=== PATIENT | female | born 1945 | race Caucasian/White ===

== ENCOUNTER 2020-12-01 22:28 | Inpatient (IN) | payer MEDICARE, OTHER, SELFPAY ==
[~2020-12-01] VITALS: Ht 154.9 cm; Wt 37.3 kg
[2020-12-02] MEDS ORDERED: METO1TAB87 PO (00:16)
[2020-12-02] MEDS ORDERED: BUSP10TA PO (00:16)
[2020-12-02] MEDS ORDERED: LISI20TA33 PO (00:16)
[2020-12-02] MEDS ORDERED: IPRA0.00 NEB (00:16)
[2020-12-02] MEDS ORDERED: LEVO750T13 (00:16)
[2020-12-02 01:20] LABS: HEMATOCRIT 38.5 % (36.0-47.0); HEMOGLOBIN 12.8 g/dl (12.0-15.5); MEAN CORPUSCULAR HEMOGLOBIN 31.5 pg (27.0-33.0); MEAN CORPUSCULAR HGB CONC 33.2 g/dl (32.0-36.5); MEAN CORPUSCULAR VOLUME 94.8 fl (80.0-96.0); PLATELET COUNT, AUTOMATED 196 10^3/uL (150-450); RED BLOOD COUNT 4.06 10^6/uL (4.00-5.40); WHITE BLOOD COUNT 19.4 10^3/uL (4.0-10.0)
--- NOTE | 2020-12-02 02:12 | REPVR ---
PROCEDURE INFORMATION: Exam: CT Head Without Contrast Exam date and time: 12/02/2020 1:16 AM Age: 75 years old Clinical indication: Injury or trauma; Fall; Blunt trauma (contusions or hematomas) TECHNIQUE: Imaging protocol: Computed tomography of the head without contrast. Axial and coronal reformatted images were created and reviewed. Radiation optimization: All CT scans at this facility use at least one of these dose optimization techniques: automated exposure control; mA and/or kV adjustment per patient size (includes targeted exams where dose is matched to clinical indication); or iterative reconstruction. COMPARISON: No relevant prior studies available. FINDINGS: Brain: Right posterior parieto-occipital encephalomalacia. Patchy areas of hypoattenuation in the periventricular and subcortical white matter, consistent with chronic small vessel ischemic disease. No CT evidence of acute intracranial hemorrhage or acute territorial infarction. No significant mass effect or midline shift. Basal cisterns patent. Cerebral ventricles: Prominence of the cortical sulci, cisterns and ventricular system, consistent with cerebral and cerebellar volume loss. Paranasal sinuses: Minimal ethmoid mucosal thickening. No fluid levels. Mastoid air cells: Grossly unremarkable. Vasculature: Calcific atherosclerotic disease in the cavernous internal carotid arteries, as well as the vertebro-basilar system. Bones/joints: No acute osseous abnormality. Soft tissues: Grossly unremarkable. IMPRESSION: 1. No CT evidence of acute intracranial pathology. 2. Additional findings, as above. Electronically signed by: Jose Ramirez On 12/02/2020 02:11:50 AM
--- NOTE | 2020-12-02 02:17 | REPVR ---
PROCEDURE INFORMATION: Exam: CT Cervical Spine Without Contrast Exam date and time: 12/02/2020 1:16 AM Age: 75 years old Clinical indication: Injury or trauma; Fall; Blunt trauma TECHNIQUE: Imaging protocol: Computed tomography images of the cervical spine without contrast. Axial, coronal and sagittal reformatted images were created and reviewed. Radiation optimization: All CT scans at this facility use at least one of these dose optimization techniques: automated exposure control; mA and/or kV adjustment per patient size (includes targeted exams where dose is matched to clinical indication); or iterative reconstruction. COMPARISON: No relevant prior studies available. FINDINGS: Bones/joints: Osteopenia. Normal cervical lordosis. No CT evidence of acute fracture, dislocation or subluxation. Mild anterolisthesis of C5 on C6, C6 on C7 and C7 on T1. Alignment otherwise anatomic. Chronic appearing partial T3 superior endplate compression deformity. Remainder of the vertebral body heights maintained. Discs/Spinal canal/Neural foramina: Mild multilevel spondylosis. No significant spinal canal or neural foraminal stenosis. Lungs: Grossly unremarkable. Soft tissues: Grossly unremarkable. IMPRESSION: 1. No CT evidence of acute cervical spine traumatic injury. 2. Additional findings, as above. Electronically signed by: Jose Ramirez On 12/02/2020 02:16:58 AM
[2020-12-02 03:25] LABS: BLOOD UREA NITROGEN 14 MG/DL (7-18); CALCIUM LEVEL 8.7 MG/DL (8.8-10.2); CARBON DIOXIDE LEVEL 37 MEQ/L (21-32); CHLORIDE LEVEL 87 MEQ/L (98-107); CK-MB VALUE MASS 1.1 NG/ML (<3.6); CPK CREATINE PHOSPHOKINASE 68 U/L (26-192); CREATININE FOR GFR 0.41 MG/DL (0.55-1.30); GLOMERULAR FILTRATION RATE > 60.0 (>39); GLUCOSE, FASTING 120 MG/DL (70-100); MAGNESIUM LEVEL 1.8 MG/DL (1.8-2.4); MB/CK RELATIVE INDEX 1.62 (< OR =4); POTASSIUM SERUM 3.9 MEQ/L (3.5-5.1); SODIUM LEVEL 130 MEQ/L (136-145); TROPONIN I 0.29 NG/ML (< 0.10)
--- NOTE | 2020-12-02 04:15 | REPVR ---
PROCEDURE INFORMATION: Exam: CT Pelvis Without Contrast; Skeletal Exam date and time: 12/02/2020 2:10 AM Age: 75 years old Clinical indication: Injury or trauma; Fall; Blunt trauma (contusions or hematomas); Bilateral; Hip; Additional info: Please include bilateral hips TECHNIQUE: Imaging protocol: Computed tomography images of the pelvis without contrast. Exam focused on the skeletal structures. Radiation optimization: All CT scans at this facility use at least one of these dose optimization techniques: automated exposure control; mA and/or kV adjustment per patient size (includes targeted exams where dose is matched to clinical indication); or iterative reconstruction. COMPARISON: No relevant prior studies available. Study limitations: Evaluation for mass, inflammatory change, including bowel wall/fold thickening, viscera, and vasculature, is significantly compromised in this patient without any contrast. 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 Severe appearing calcified atherosclerotic disease is noted. Vascular patency or hemodynamics significance is not evaluated by this study. PERITONEAL : The entire peritoneal cavity is not included. No free air or free fluid within the visualized peritoneal cavity. GI: The entire GI tract is not included. The visualized stomach does not appear volumetrically distended, however does extend into the pelvis. The stomach contains some fluid and gas. Gastric wall or fold thickening cannot be excluded by this study. Clinical correlation is advised. No appearance of a small-bowel obstruction. Evaluation for bowel wall and fold thickening is compromised on this study, secondary to lack of any contrast. Perianal thickening or inflammation cannot be excluded by this study. Portions of the colon and rectum appear thick walled. Clinical correlation with any symptoms. This could be artifactual. For complete evaluation, consider follow-up with colonoscopy or fluoroscopic evaluation. The appendix is not identified. HEPATOBILIARY, PANCREAS, SPLEEN: The entire liver is not included. The visualized right hepatic lobe extends into the pelvis, possibly a Jeanette's lobe. Hepatic attenuation is within normal range. Evaluation is limited due to lack of contrast, however there appears to be some calcific material in the region of the gallbladder neck. If there are symptoms related to the gallbladder, consider ultrasound for further evaluation. The entire pancreas is not included. No visualized pancreatic inflammation. The entire spleen is not included. The visualized spleen does not appear enlarged. BLADDER, RETROPERITONEAL: Mildly distended urinary bladder. No perivesical stranding. Retroperitoneal structures are not well due to lack of contrast. PELVIC: Evaluation of pelvic structures and adnexa is compromised secondary to lack of contrast differentiation. No obvious dominant cystic pelvic mass is seen. MUSCULOSKELETAL: There is heterogeneous severe vertebral compression fracture deformity of the L4 vertebral body of indeterminate acuity. There is slight retropulsion into the spinal canal which may result in moderate spinal stenosis. Chronic appearing partial avulsion of the right greater trochanter noted with nonunion. Mild degenerative changes of the hip joints are seen. No acute hip fracture seen. Degenerative changes of the pubic symphysis are noted. No acute sacral fracture is seen. Mild body wall edema noted. IMPRESSION: Severe L4 vertebral body compression fracture deformity with retropulsion, of indeterminate acuity. No other evidence of an acute pelvic injury is seen. 4.2 cm abdominoaortic aneurysm. Severe appearing atherosclerotic disease. Nonspecific gastrointestinal findings as discussed above. There may be a gallstone in the region of the gallbladder neck. If there are related symptoms, consider ultrasound for further evaluation. Other findings and limitations discussed above. Electronically signed by: Andres Cassidy On 12/02/2020 04:15:28 AM
[2020-12-02] MEDS ORDERED: NS 1,000 ML IV STA (05:08)
[2020-12-02] MEDS ORDERED: BOOSTRIX/ADACEL VACCINE (DIPHTH/PERTUSS/ACELL/TETANUS) 0.5ML SYR IM ONE (05:10)
[2020-12-02] MEDS ORDERED: ACETAMINOPHEN TAB 650MG DOSE (2X325MG) PO ONE (05:10)
[2020-12-02] MEDS ORDERED: cefTRIAXone SOD 1 GM in D5W MINI-BAG PLUS 50 ML IV ONE (05:30)
[2020-12-02] MEDS ORDERED: ASPIRIN 325 MG TAB PO ONE (05:30)
[2020-12-02] MEDS ORDERED: med rec comment (06:43)
[2020-12-02 07:08] LABS: RSV AMPLIFICATION NEGATIVE (NEGATIVE)
--- NOTE | 2020-12-02 08:21 | REPVR ---
PROCEDURE INFORMATION: Exam: XR Chest Exam date and time: 12/02/2020 6:43 AM Age: 75 years old Clinical indication: Other: Leukocystosis TECHNIQUE: Imaging protocol: XR of the chest. Views: 1 view. COMPARISON: CT Spine,cervical w/o contrast 12/02/2020 1:15 AM FINDINGS: Lungs: The lungs are hyperinflated. There is right lower lung zone infiltrates. There is possibly subtle left upper lobe infiltrates. Pleural spaces: Unremarkable. No pleural effusion. No pneumothorax. Heart/Mediastinum: Unremarkable. No cardiomegaly. Vasculature: There is moderate aortic knob calcifications. Bones/joints: Unremarkable. IMPRESSION: Hyperinflated lungs with right lower lung zone infiltrates with an element of atelectasis and volume loss as suggested by mediastinal shift to the right. Additionally noted is questionable subtle left upper lobe infiltrates. These are possibly on the basis of infectious etiology however follow-up to resolution or correlation with CT of the chest are suggested. Electronically signed by: Hilario Alfonso On 12/02/2020 08:21:01 AM
[2020-12-02] MEDS ORDERED: MOM 30ML SUSPENSION UDC PO PRN (08:55)
[2020-12-02] MEDS ORDERED: ACETAMINOPHEN TAB 650MG DOSE (2X325MG) PO PRN (08:55)
[2020-12-02] MEDS ORDERED: IPRATROPIUM 0.5MG/ALBUTEROL 2.5MG INH SOL UD 3ML (DUONEB) NEB PRN (09:05)
--- NOTE | 2020-12-02 10:23 | REP ---
INDICATION: R LL Infiltrate? COMPARISON: None. TECHNIQUE: Limited noncontrast enhanced standard helical technique FINDINGS: There is no mediastinal adenopathy. Right hilar adenopathy cannot be ruled out since intravenous contrast was not administered. There are no pleural or pericardial effusions. The imaged upper abdomen shows a 3.6 cm sized abdominal aortic aneurysm with heavy peripheral wall calcification. Bone window technique throughout the examination shows an age undetermined L1 grade 3 compression fracture and a grade 1 T6 age undetermined compression fracture and a grade 2 T4 age undetermined compression fracture and a T2 grade 2 age undetermined compression deformity. The bones are demineralized. Evaluation of the lung castillo shows a patchy area of consolidation in the right lower lobe seen in conjunction with bronchiectasis and debris within multiple dilated bronchials there is an asymmetric density in the left upper lobe which measures 2.1 cm. This has irregular margins. There is an irregular density in the inferior right middle lobe. This is pleural based and seen with some air bronchograms. The lung castillo are hyperexpanded. Fibrotic changes are seen throughout the lung castillo. IMPRESSION: 1. Right lower lobe findings as described above suspicious for infectious etiology, however, neoplasm cannot be ruled out. 2. Abnormal left upper lobe density as described above. Neoplasm cannot be ruled out. 3. Pleural based right middle lobe density as described above probable subsegmental atelectatic change and/or fibrotic change. This would need additional follow-up. 4. Other lung field findings as described above. 5. Vertebral body findings as described above. 6. Other findings and limitations as described above. <Electronically signed by Jarad Nunez > 12/02/20 [id number]
[2020-12-02 10:35] VITALS: BP 178/89
[2020-12-02] MEDS: METOPROLOL TART 25 MG TABLET PO SCH ×2 (11:14→21:56)
[2020-12-02] MEDS: DOCUSATE SODIUM 100MG CAPSULE PO SCH ×2 (11:14→21:56)
[2020-12-02] MEDS: PIPERACILLIN/TAZOBACTAM SOD 3.375 GM in D5W MINI-BAG PLUS 50 ML IV SCH ×3 (11:15→22:01)
[2020-12-02 12:00] VITALS: BP 167/77
--- NOTE | 2020-12-02 12:54 | HPEPDOC ---
[facility] Medical History & Physical Date of Admission Dec 02, 2020 Date of Service: Dec 02, 2020 History and Physical Chief complaint: Who presented to the hospital after she had fallen History of present illness: Patient is a 79-year-old female who presented to the hospital after she had fallen 2 days prior. Patient reported that on Thursday night she was getting ready for bed. . She reported that she stumbled and had fallen. She reported that she hit her head and left arm landing on her left hip. Patient denied any loss of consciousness. She reportedly got up and went back to bed. Patients family was trying to get in touch with her and she failed to answer any of her phone calls. Patient is having difficulty with ambulation and family had decided to bring her to the emergency room for further evaluation. Currently patient denies any chest pain. She does report some shortness of breath and a productive cough with clear sputum over the last 1 month. She does report a dry throat. Reports some nausea and 2 days ago experience some vomiting early denies any abdominal pain. Does report diarrhea with her last bowel movement occurring yesterday described as loose and not watery. Denies any urinary discomfort. Has not experienced any recent fevers or chills. Reports her appetite is normal, but has expressed some weight loss that she is unable to quantify. Past Medical History: CAD s/p stent HTN COPD Chronic hypoxia (on 4L of oxygen via NC at home) Depression Past Surgical History: Hysterectomy Allergies: See below Medications: See below Family History: - No history of malignancies Social History: - Denies the use of alcohol or illicit drugs; patient reports that she is an ac tive smoker of greater than 50 years at one pack per day - Denies recent travel or sick contacts - Lives alone - Occupation; previously worked in a [employer] Review of Systems: 10 point review of systems complete, all negative otherwise stated in HPI Physical exam: - Vitals: BP [179/79], HR [87], RR [17], Sat [94%NC2L], Temp [98.2F] - General: Sitting up in bed, Frail, No acute distress, Speaking in full sentences, AAOx3 - HEENT: NC, AT, PERRLA - CVS: RRR, +S1S2 - Lungs: Fair air entry bilaterally, No appreciable wheezing / rales / rhonchi - Abdomen: Soft, Non-distended, Non-tender - Extremities: No lower extremity edema, No calf tenderness - Neuro: No focal motor or sensory deficit - Skin: No visible rashes Labs: See below Imaging: See below EKG: See below Assessment and Plan: Fall - Patient reported that she had fallen when she was getting ready for bed - Has had difficulty with ambulation - Imaging noted above without any acute fractures as reported by ER provider - c/w Pain control with Tylenol / Tramadol - Will start PT and OT / Fall precautions Suspected pneumonia - Patient has reported some shortness of breath with a productive cough - Patient remains afebrile and hemodynamically stable - Leukocytosis - No lactic acidosis - Imaging noted above - Will check blood cultures / sputum cultures / Procalcitonin / MRSA screen - Will start Zosyn (Day #1) CAD s/p stent - Patient reports that this has happened greater than 12 years ago - Denies any chest pain, shortness of breath or palpitations - Troponin elevation; has remained stable; likely 2/2 demand ischemia - Currently not on any aspirin or statins - s/p ASA 325 in the ER Hyponatremia - Will check urine sodium / creatinine / osmolality / UA - s/p 1 L NS in the ER HTN - BP elevated; however, has not taken any of her medications - Will start Lisinopril / Metoprolol withhold parameters Chronic COPD - No evidence of exacerbation - Continue with inhaled therapy as ordered Chronic hypoxia - Patient is on 4L of oxygen via NC at home Depression - c/w Buspirone DVT prophylaxis - Will start Heparin Vital Signs Vital Signs Date Time Temp Pulse Resp B/P (MAP) Pulse Ox O2 Delivery O2 Flow Rate FiO2 12/02/20 11:14 87 179/79 12/02/20 10:35 98.2 17 94 Nasal Cannula 2.0 Laboratory Data Labs 24H Laboratory Tests 2 12/02/20 01:15: Nucleated Red Blood Cells % (auto) 0.0 12/02/20 02:08: Anion Gap 6L, Glomerular Filtration Rate > 60.0, Calcium Level 8.7L, Magnesium Level 1.8, Total Creatine Kinase 68, Creatine Kinase MB 1.1, Creatine Kinase MB Relative Index 1.62, Troponin I 0.29H 12/02/20 05:27: Troponin I 0.29H 12/02/20 06:18: Coronavirus (COVID-19)(PCR) NEGATIVE, Influenza Type A (RT-PCR) NEGATIVE, Influenza Type B (RT-PCR) NEGATIVE, Respiratory Syncytial Virus (PCR) NEGATIVE 12/02/20 09:35: Lactic Acid Level 1.7, Procalcitonin 0.23 12/02/20 11:55: 12/02/20 11:56: 12/02/20 12:07: 12/02/20 12:16: CBC/BMP Laboratory Tests 12/02/20 01:15 12/02/20 02:08 Microbiology Microbiology 12/02/20 Blood Culture, Received Pending 12/02/20 Blood Culture, Received Pending Home Medications Scheduled Buspirone HCl (Buspirone HCl) 10 Mg Tablet, 10 MG PO BID Lisinopril (Lisinopril) 20 Mg Tablet, 20 MG PO DAILY Metoprolol Tartrate (Metoprolol Tartrate) 25 Mg Tablet, 25 MG PO BID Scheduled PRN Ipratropium/Albuterol Sulfate (Iprat-Albut 0.5-3(2.5) mg/3 ml) 3 Ml Ampul.neb, 1 VIAL NEB QID PRN for SHORTNESS OF BREATH Miscellaneous Medications [med rec comment] used external med history for med rec unable to verify with pt. or family Allergies Coded Allergies: No Known Allergies (Unverified , 12/01/20) COLLINS CLARK MD Dec 02, 2020 12:54
[2020-12-02 13:00] LABS: CK-MB VALUE MASS < 1.0 NG/ML (<3.6); CPK CREATINE PHOSPHOKINASE 41 U/L (26-192); MB/CK RELATIVE INDEX 2.44 (< OR =4); TROPONIN I 0.26 NG/ML (< 0.10)
[2020-12-02] MEDS: HEPARIN SOD (PORCINE) 5000UNITS/ML 1ML VIAL/SYRINGE SC SCH ×2 (13:21→21:56)
[2020-12-02] MEDS: busPIRone 10 MG TAB PO SCH ×2 (13:21→21:55)
[2020-12-02 13:23] LABS: CREATININE,RANDOM URINE 79.6 MG/DL; POTASSIUM RANDOM URINE 28.6 MEQ/L
[2020-12-02 13:43] LABS: FREE T4 1.16 NG/DL (0.76-1.46); THYROID STIMULATING HORMONE 1.15 uIU/ML (0.358-3.740)
--- NOTE | 2020-12-02 14:31 | ECGEPIP ---
[facility] - ED Test Date: 2020-12-02 Pat Name: AC BAGLEY Department: Room: - Gender: Female Mill Tender: : 1945 Requested By: SAJAN DIANE Order Number: [id number] Reading MD: Katya Patel Measurements Intervals Elmer Rate: 87 P: 67 SD: 132 QRS: 47 QRSD: 126 T: -54 QT: 392 QTc: 471 Interpretive Statements Sinus rhythm with occasional premature ventricular complexes Right atrial enlargement Left ventricular hypertrophy with QRS widening ( Sokolow-Borjas , [place] product ) Nonspecific T wave abnormality No prior Electronically Signed on 12-02-2020 14:30:46 EDT by Katya Patel
[2020-12-02 16:00] VITALS: BP 157/70
[2020-12-02 20:00] VITALS: BP 128/60
[2020-12-03] VITALS: BP 134/66
[2020-12-03 04:00] VITALS: BP 153/81
[2020-12-03] MEDS: PIPERACILLIN/TAZOBACTAM SOD 3.375 GM in D5W MINI-BAG PLUS 50 ML IV SCH ×3 (05:28→16:43)
[2020-12-03] MEDS: HEPARIN SOD (PORCINE) 5000UNITS/ML 1ML VIAL/SYRINGE SC SCH ×2 (05:29→12:58)
[2020-12-03 05:54] LABS: BASO # 0.1 10^3/uL (0.0-0.2); BASO % 0.9 % (0.0-1.0); EOS # 0.1 10^3/uL (0.0-0.5); EOS % 0.5 % (0.0-3.0); HEMATOCRIT 34.2 % (36.0-47.0); HEMOGLOBIN 11.1 g/dl (12.0-15.5); LYMPH # 0.4 10^3/uL (1.5-5.0); LYMPH % 3.2 % (24.0-44.0); MEAN CORPUSCULAR HEMOGLOBIN 31.4 pg (27.0-33.0); MEAN CORPUSCULAR HGB CONC 32.5 g/dl (32.0-36.5); MEAN CORPUSCULAR VOLUME 96.9 fl (80.0-96.0); MONO # 0.9 10^3/uL (0.0-0.8); MONO % 6.7 % (2.0-8.0); NEUTROPHILS # 11.2 10^3/uL (1.5-8.5); NEUTROPHILS % 88.1 % (36.0-66.0); PLATELET COUNT, AUTOMATED 180 10^3/uL (150-450); RED BLOOD COUNT 3.53 10^6/uL (4.00-5.40); WHITE BLOOD COUNT 12.7 10^3/uL (4.0-10.0)
[2020-12-03 06:19] LABS: BLOOD UREA NITROGEN 14 MG/DL (7-18); CALCIUM LEVEL 8.2 MG/DL (8.8-10.2); CARBON DIOXIDE LEVEL 41 MEQ/L (21-32); CHLORIDE LEVEL 88 MEQ/L (98-107); CREATININE FOR GFR 0.44 MG/DL (0.55-1.30); GLOMERULAR FILTRATION RATE > 60.0 (>39); GLUCOSE, FASTING 78 MG/DL (70-100); MAGNESIUM LEVEL 1.8 MG/DL (1.8-2.4); POTASSIUM SERUM 3.2 MEQ/L (3.5-5.1); SODIUM LEVEL 131 MEQ/L (136-145)
[2020-12-03 07:32] LABS: C REACTIVE PROTEIN QUANTITATIV 5.46 MG/DL (0.00-0.30)
[2020-12-03 08:00] VITALS: BP 165/78
[2020-12-03] MEDS ORDERED: POTASSIUM CHLORIDE 10 MEQ SR TABLET PO ONE (08:00)
[2020-12-03 08:47] LABS: ERYTHROCYTE SEDIMENTATION RATE 20 mm/hr (0-30)
[2020-12-03] MEDS ORDERED: guaiFENesin ER 600 MG TAB PO SCH (09:00)
[2020-12-03 09:02] VITALS: BP 165/78
[2020-12-03] MEDS: busPIRone 10 MG TAB PO SCH (09:02)
[2020-12-03] MEDS: DOCUSATE SODIUM 100MG CAPSULE PO SCH (09:02)
[2020-12-03] MEDS: METOPROLOL TART 25 MG TABLET PO SCH (09:02)
[2020-12-03 12:00] VITALS: BP 151/75
--- NOTE | 2020-12-03 12:43 | DS.PDOC ---
Discharge Summary General Date of Admission Dec 02, 2020 at 08:53 Date of Discharge 12/03/2020 Discharge Summary PROCEDURES PERFORMED DURING STAY: [None]. ADMITTING DIAGNOSES / DISCHARGE DIAGNOSES: Fall / L4 fracture (unclear acuity) Suspected pneumonia / Positive blood cultures CAD s/p stent Hyponatremia Hypokalemia HTN Chronic COPD Chronic hypoxia Depression DVT prophylaxis COMPLICATIONS/CHIEF COMPLAINT: Fall HISTORY OF PRESENT ILLNESS: Patient is a 79-year-old female who presented to the hospital after she had fallen 2 days prior. Patient reported that on Thursday night she was g etting ready for bed. . She reported that she stumbled and had fallen. She reported that she hit her head and left arm landing on her left hip. Patient denied any loss of consciousness. She reportedly got up and went back to bed. Patient's family had transient to the emergency room for further evaluation. Patient was admitted to hospital service for weakness and suspected pneumonia. Patient was seen and examined at the bedside. Currently patient reports that her breathing is doing relatively better. She denies any nausea, vomiting, abdominal pain or diarrhea. Reports that she is still coughing but unable to expectorate much sputum. Denies any chest pain. Patient is reported a significant pain of her back. HOSPITAL COURSE: Fall / L4 fracture (unclear acuity) - Patient reported that she had fallen when she was getting ready for bed - Has had difficulty with ambulation - Physical reveals 5 out of 5 strength of bilateral lower extremities and no sensory deficits - This morning patient has reported incontinence of stool and urine - c/w Pain control with Tylenol - Will continue with bed rest - c/w PT and OT after TLSO brace / Fall precautions - Discussed with 3 sons Jaime Alexandra and Dagoberto - advising the neurosurgical evaluation would be prudent - Patient has been accepted to [facility] for evaluation by neurosurgery under Dr. Shoemaker's service - Patient will be transferred there via ambulance Suspected pneumonia / Positive blood cultures - Patient has reported some shortness of breath with a productive cough - Patient remains afebrile and hemodynamically stable - Leukocytosis - No lactic acidosis - Blood cultures 12/02: Positive for gram positive cocci in clusters - Sputum cultures pending - PCT not significantly elevated - MRSA negative - Imaging noted above - Will repeat blood cultures - c/w Lisa (Day #2) - Had consulted ID CAD s/p stent - Patient reports that this has happened greater than 12 years ago - Denies any chest pain, shortness of breath or palpitations - Troponins have remained stable; likely 2/2 demand ischemia - Currently not on any aspirin or statins - s/p ASA 325 in the ER Hyponatremia - Will check urine sodium / creatinine / osmolality / UA - s/p 1 L NS in the ER Hypokalemia - Will supplement HTN - BP elevated; however, has not taken any of her medications - c/w Lisinopril / Metoprolol withhold parameters Chronic COPD - No evidence of exacerbation - c/w inhaled therapy as ordered Chronic hypoxia - Patient is on 4L of oxygen via NC at home Depression - c/w Buspirone DVT prophylaxis - c/w Heparin DISCHARGE MEDICATIONS: Please see below. ALLERGIES: Please see below. PHYSICAL EXAMINATION ON DISCHARGE: Vitals (See below) General: Lying in bed, no acute distress, comfortable, AAOx3 HEENT: NC, AT CVS: +S1S2 Lungs: Fair air entry b/l, no evidence of wheezing, rales or rhonchi Abdomen: Soft, nondistended and nontender Extremities: Lower extremities do not reveal any significant pitting edema Neuro: 5 out of 5 strength at lower extremities bilaterally. No sensory deficits noted LABORATORY DATA: Please see below. IMAGING: CT cervical spine 12/02: 1. No CT evidence of acute cervical spine traumatic injury. 2. Additional findings, as above. CT head 12/02: 1. No CT evidence of acute intracranial pathology. 2. Additional findings, as above. CT pelvis 12/02: Severe L4 vertebral body compression fracture deformity with retropulsion, of indeterminate acuity. No other evidence of an acute pelvic injury is seen. CXR 12/02: Hyperinflated lungs with right lower lung zone infiltrates with an element of atelectasis and volume loss as suggested by mediastinal shift to the right. Additionally noted is questionable subtle left upper lobe infiltrates. These are possibly on the basis of infectious etiology however follow-up to resolution or correlation with CT of the chest are suggested. CT Chest 12/02: 1. Right lower lobe findings as described above suspicious for infectious etiology, however, neoplasm cannot be ruled out. 2. Abnormal left upper lobe density as described above. Neoplasm cannot be ruled out. 3. Pleural based right middle lobe density as described above probable subsegmental atelectatic change and/or fibrotic change. This would need additional follow-up. 4. Other lung field findings as described above. 5. Vertebral body findings as described above. 6. Other findings and limitations as described above. ACTIVITY: Bedrest DISCHARGE PLAN: Follow-up with Neurosurgery in [facility] upon transfer Remain compliant with treatment plan and medications Return to the ER if you experience any problems DISPOSITION: Transferred to [facility] DISCHARGE CONDITION: [Stable]. TIME SPENT ON DISCHARGE: 35 minutes. Vital Signs/I&Os Vital Signs Date Time Temp Pulse Resp B/P (MAP) Pulse Ox O2 Delivery O2 Flow Rate FiO2 12/03/20 12:00 98.7 63 18 151/75 (100) 97 Nasal Cannula 4.0 I&O- Last 24 Hours up to 6 AM 12/03/20 05:59 Intake Total 1370 ml Output Total 500 ml Balance 870 ml Laboratory Data Labs 24H Laboratory Tests 2 12/02/20 12:55: Osmolality 282, Thyroid Stimulating Hormone (TSH) 1.150, Free Thyroxine 1.16 12/03/20 05:23: Immature Granulocyte % (Auto) 0.6, Neutrophils (%) (Auto) 88.1H, Lymphocytes (%) (Auto) 3.2L, Monocytes (%) (Auto) 6.7, Eosinophils (%) (Auto) 0.5, Basophils (%) (Auto) 0.9, Neutrophils # (Auto) 11.2H, Lymphocytes # (Auto) 0.4L, Monocytes # (Auto) 0.9H, Eosinophils # (Auto) 0.1, Basophils # (Auto) 0.1, Nucleated Red Blood Cells % (auto) 0.0, Erythrocyte Sedimentation Rate 20, Anion Gap 2L, Glomerular Filtration Rate > 60.0, Calcium Level 8.2L, Magnesium Level 1.8, C- Reactive Protein, Quantitative 5.46H CBC/BMP Laboratory Tests 12/03/20 05:23 Microbiology Microbiology 12/03/20 Blood Culture, Received Pending 12/03/20 Blood Culture, Received Pending 12/02/20 Gram Stain - Final, Resulted 12/02/20 Sputum Culture - Preliminary, Resulted Yeast Like Organism 12/02/20 Blood Culture - Preliminary, Resulted 12/02/20 Blood Culture - Preliminary, Resulted Discharge Medications Scheduled Buspirone HCl (Buspirone HCl) 10 Mg Tablet, 10 MG PO BID, (Reported) Guaifenesin (Mucinex) 600 Mg Tab.er.12h, 1,200 MG PO BID Metoprolol Tartrate (Metoprolol Tartrate) 25 Mg Tablet, 25 MG PO BID, (Reported) Cfbrcmrzlnow-Lhuc-Vfnxdsoc,Iso (Zosyn 3.375 gm/50 ml Galaxy) 3.375 Gm/50 Ml Froz.piggy, 1 DAGOBERTO IV Q6H Scheduled PRN Acetaminophen (Acetaminophen) 325 Mg Tablet, 650 MG PO Q4H PRN for MILD PAIN or TEMP > 101 Ipratropium/Albuterol Sulfate (Iprat-Albut 0.5-3(2.5) mg/3 ml) 3 Ml Ampul.neb, 1 VIAL NEB QID PRN for SHORTNESS OF BREATH, (Reported) Allergies Coded Allergies: No Known Allergies (Unverified , 12/01/20) COLLINS CLARK MD Dec 03, 2020 12:43
[2020-12-03] MEDS ORDERED: ACET1TAB55 PO (12:47)
[2020-12-03] MEDS ORDERED: ZOSY1SOL5 IV (12:47)
[2020-12-03] MEDS ORDERED: MUCI600T31 PO (12:47)
[2020-12-03 16:00] VITALS: BP 162/82
[2020-12-03] MEDS ORDERED: ONDANSETRON 4MG/2ML VIAL IV ONE (17:00)
[2020-12-03] MEDS ORDERED: traMADol 50 MG TAB PO ONE (17:00)
[2020-12-03 17:39] LABS: TOTAL T3 61.4 NG/DL (60.0-181.0)
--- NOTE | 2020-12-03 18:00 | CR ---
INFECTIOUS DISEASE CONSULTATION DATE: 12/03/2020 REQUESTED BY: Asher Beauchamp M.D. REASON FOR CONSULTATION: Positive blood cultures with gram-positive cocci in clusters. HISTORY OF PRESENT ILLNESS: Mrs. Covington is a 79-year-old female with a history of chronic obstructive pulmonary disease (COPD) on chronic oxygen at 4 liters nasal cannula and coronary artery disease who presented after she fell at home, landing on her left side. She had multiple ecchymosis on her left face, left arm and left hip pain. The patient denies loss of consciousness. She fell and then went back to bed. Patient's family was concerned, as she was having trouble with ambulation and therefore, they recommended she come to the emergency room. She denies any chest pain. She had some shortness of breath and productive cough of clearish phlegm of about one month duration. She had some nausea but no vomiting. No fever or chills. Patient is having watery diarrhea since the day of admission and some urinary incontinence and bladder incontinence. Patient was found to have lumbar fractures at L1 compression fracture and T4, T6. Because of the issues with incontinence, there was some concern that she may have a cord compression and therefore, she is being transferred for evaluation by neurosurgery. The patient had some pain, but no significant back pain. She had mild left history and physical pain. Patient has been able to ambulate, but with weakness. She has had no fever, chills or night sweats. She has had weight loss, but she cannot tell me how much. PAST MEDICAL HISTORY: 1. Coronary artery disease status post stent. 2. Hypertension. 3. Chronic obstructive pulmonary disease (COPD) on 4 liters oxygen for chronic hypoxia. 4. Depression. PAST SURGICAL HISTORY: Hysterectomy. FAMILY HISTORY: No relevant history. SOCIAL HISTORY: She denies alcohol or drug use. She is an active smoker, about 50 pack year. Denies any sick contact. Lives alone. Worked in the [employer]. ALLERGIES: No known drug allergies. MEDICATIONS: - Zosyn 3.375 grams intravenous (IV) every 6 hours - Mucinex 1200 mg by mouth twice a day - Atrovent nebulizers 3 mL four times a day as needed - metoprolol 25 mg by mouth twice a day - buspirone 10 mg by mouth twice a day - Colace 100 mg by mouth twice a day - Milk of magnesia as needed - Tylenol as needed LABORATORY DATA: Urinalysis has 3 white cells, 8 red cells. White count 12.7, down from 19.4, hemoglobin 11.1, hematocrit 34.2, platelets 180, 88% neutrophils, 3% lymphocytes, 7% monocytes. Erythrocyte sedimentation rate (ESR) 20. Sodium 131, potassium 3.2, chloride 88, bicarbonate 41, BUN 14, creatinine 0.44, glucose 78, calcium 8.2, magnesium 1.8. Osmolality 282. Lactic acid 1.7. Troponin 0.26. C-reactive protein (CRP) 5.46. Procalcitonin 0.23. TSH 1.15, Free T4 1.16. Blood cultures, two sets, were drawn in the emergency room. They are dated for 5:43, at the same time and they have gram-positive cocci in clusters. We do not have an identification, whether this is Staphylococcus coag negative or Staphylococcus aureus. We will need to wait until tomorrow. Sputum culture has yeast-like organism. Repeat blood cultures done today are pending. IMAGING DATA: CT chest showed L1 grade 3 compression fracture, T6 and T4 undetermined compression fracture. Right lower lung bronchiectasis with multiple dilated bronchi, left upper lobe 2.1 cm density, density in the right middle lobe, fibrotic changes. Neoplasm cannot be ruled out. PHYSICAL EXAMINATION: GENERAL: She is a frail, elderly female in no acute distress. She is upset about her transfer to [place]. VITAL SIGNS: Temperature 99.6. She has been afebrile for the past 48 hours. No fever during the hospitalization. Pulse 73, respirations 18, blood pressure 162/82, oxygen saturation 98% on 4 liters nasal cannula. HEART: Normal S1, S2. Distant. No murmurs appreciated. LUNGS: Diminished breath sounds bilaterally. ABDOMEN: Soft, nontender. No hepatosplenomegaly. GENITOURINARY (): Normal for age with incontinent loose stools. BACK: Mild lumbosacral tenderness at L4-L5. The patient is able to roll over and sit up. STRENGTH: Lower extremities: Right 5/5, left 5- due to hip pain where she fell, but there are no bruises there. Moves hip and knees appropriately. SKIN: Ecchymosis involving the left arm with skin breakdown and left forehead. No other rashes. IMPRESSION: A 75-year-old female with a history of chronic obstructive pulmonary disease (COPD), tobacco abuse, on chronic oxygen at 4 liters, admitted after a fall, found to have a compression fracture, now has incontinence of urine and stools. Patient has received stool softeners and now has diarrhea. She is debilitated from her illness. I do not think she has compression syndrome. I think the diarrhea and incontinence are both related to anxiety and laxative. As far as pneumonia and new infiltrates are concerned, her procalcitonin was 0.23, which makes bacterial pneumonia less likely. I am more concerned about malignancy and patient may need further studies for that. She is currently on IV Zosyn, which I have not made a change to, as she is being transferred to a tertiary care center for evaluation of lumbar fracture. Probably, patient could be switched to a quinolone or doxycycline. Would also suggest obtaining pneumococcal antigen and Legionaire antigen. Repeat blood cultures have been drawn. My suspicion is these will be contaminants from 12/02/2020.
--- NOTE | 2020-12-05 17:02 | IPNPDOC ---
Text Note Date of Service The patient was seen on 12/05/20. NOTE Received call from microbiology about 12/02 positive BCx that grew methicillin resistant Staph warneri and methicillin sensitive hominis, while the other bottle grew methicillin resistant staph epi. 12/03 BCx continue to be negative. I received a call from [facility] where she was transferred and discussed these results. VS,Fishbone, I+O VS, Fishbone, I+O Vital Signs Date Time Temp Pulse Resp B/P (MAP) Pulse Ox O2 Delivery O2 Flow Rate FiO2 12/03/20 17:08 20 Nasal Cannula 4.0 12/03/20 16:00 99.6 73 162/82 (108) 98 EMILY TAYLOR MD Dec 05, 2020 17:02
== END 2020-12-03 17:25 | disposition short-term general hospital (02) | DRG 551 ==
LOC: M ED 22:28 → M ED INP 12-02 08:53 → ENRESERV 12-02 09:05 → M PCU 12-02 10:28
PROVIDERS: ADMIT Internal Medicine; ATTEND Internal Medicine
DX: S32.049A Unspecified fracture of fourth lumbar vertebra, initial encounter for closed fracture (principal); J18.9 Pneumonia, unspecified organism; E87.1 Hypo-osmolality and hyponatremia; R29.6 Repeated falls; I25.10 Atherosclerotic heart disease of native coronary artery without angina pectoris; Z95.2 Presence of prosthetic heart valve; F32.9 Major depressive disorder, single episode, unspecified; E87.6 Hypokalemia; I10 Essential (primary) hypertension; J44.9 Chronic obstructive pulmonary disease, unspecified; W18.30XA Fall on same level, unspecified, initial encounter; Y92.013 Bedroom of single-family (private) house as the place of occurrence of the external cause; Z79.899 Other long term (current) drug therapy

== ENCOUNTER 2020-12-10 00:36 | Inpatient (IN) | payer MEDICARE ==
[~2020-12-10] VITALS: Ht 154.9 cm; Wt 42.5 kg
[~2020-12-10 00:36] MED LIST: ACET1TAB55 PO; BUSP10TA PO; IPRA0.00 NEB; LEVO750T13; LISI20TA33 PO; METO1TAB87 PO; MUCI600T31 PO; ZOSY1SOL5 IV; med rec comment
[2020-12-11 00:05] VITALS: BP 164/75
[2020-12-11] MEDS ORDERED: MOM 30ML SUSPENSION UDC PO PRN (00:05)
[2020-12-11] MEDS ORDERED: MAALOX 30 ML SUSP *UDC PO PRN (00:05)
[2020-12-11] MEDS ORDERED: IPRA0.00 INH (00:28)
[2020-12-11] MEDS ORDERED: METO1TAB7 PO (00:40)
[2020-12-11] MEDS ORDERED: DOXY1CAP62 PO (00:40)
[2020-12-11] MEDS ORDERED: ACET-907 PO (00:40)
[2020-12-11] MEDS ORDERED: BUSP10TA PO (00:40)
[2020-12-11] MEDS ORDERED: SODI1TAB6 PO (00:40)
[2020-12-11] MEDS ORDERED: NIFE30TA50 PO (00:40)
[2020-12-11] MEDS ORDERED: ASPI1CHW3 PO (00:40)
[2020-12-11] MEDS ORDERED: OXYC-517 PO (00:40)
[2020-12-11] MEDS ORDERED: ATOR40TA75 PO (00:40)
[2020-12-11] MEDS ORDERED: LISI20TA33 PO (00:40)
[2020-12-11] MEDS ORDERED: LIDO1PAD TOP (00:40)
[2020-12-11] MEDS ORDERED: HOME MED LIST COMPLETE! XX SCH (00:45)
[2020-12-11] MEDS ORDERED: oxyCODONE 5MG TAB PO PRN ×2 (05:00)
--- NOTE | 2020-12-11 05:01 | HPEPDOC ---
[facility] Medical History & Physical Date of Admission Dec 11, 2020 Date of Service: Dec 11, 2020 History and Physical CHIEF COMPLAINT: back pain HISTORY OF PRESENT ILLNESS: This is a 75-year-old female with a past medical history of coronary artery disease status post stenting, hypertension, COPD on 4 L of oxygen at home, depression. Patient was admitted at [facility] between 12/02 and 12/03, after she sustained a fall at home, landing on her left hip. Patient complained of incontinence of stool and urine in the context of a severe L4 vertebral body compression fracture with retropulsion. For this reason, patient was transferred to [facility] for neurosurgery evaluation. Prior to transfer. Patient had positive blood cultures for staph hominis and staph epidermidis which did not regrow on repeat cultures from 12/03. Patient has suspected pneumonia and was in for transferred with IV Zosyn. Patient transferred back from [facility]. Reviewed hospital course. Patient was evaluated by orthospine service. Cardiology was also consulted for risk stratification. Cardiovascular risk thought to be high and recommended adding statin and resume aspirin if no surgical plan was in place. The patient recommended echo given history of gram-positive bacteremia that showed an EF of 41-49%. Unfortunately, I am unable to locate the echo report in the transfer packet. During the admission, patient also became unresponsive after dose of Ativan given for MRI and improved with reversal. Also concerning was the left upper lobe 2.1 cm density with irregular margins, as well as an irregular density in the inferior right middle lobe. Concern for malignant process. Patient was evaluated by thoracic surgery service at [facility] and recommended brain MRI, PET scan. Patient's family opted to return to [facility] and continue with outpatient surgical planning. Patient will need referral to oncology service for Pap CT and brain MRI. PAST MEDICAL HISTORY: CAD s/p stent HTN COPD Chronic hypoxia (on 4L of oxygen via NC at home) Depression PAST SURGICAL HISTORY: Hysterectomy SOCIAL HISTORY: - Denies the use of alcohol or illicit drugs; patient reports that she is an active smoker of greater than 50 years at one pack per day - Denies recent travel or sick contacts - Lives alone - Occupation; previously worked in a [employer] FAMILY HISTORY: - No history of malignancies ALLERGIES: Please see below. REVIEW OF SYSTEMS: 10 point HOME MEDICATIONS: Please see below. PHYSICAL EXAMINATION: VITAL SIGNS: please see below General: NAD, comfortable HEENT: PERRLA, EOMI, sclerae clear Neck: supple, normal ROM, no JVD Respiratory: lungs CTAB, no wheeze, no rales, no crackles CVS: RRR, normal S1, S2, no murmurs Abdo: soft, no masses, no hepatosplenomegaly, BS+, no rebound tenderness Extremities: no edema, pulses 2+ MSK: no joint deformities, normal ROM Neuro: no focal neuro deficits, moving all 4 extremities, CN2-12 intact. Strength 5/5 in all 4 extremities. No nystagmus. Psych: calm, cooperative, AAO x 3 LABORATORY DATA: See below. MICROBIOLOGY: Please see below. ASSESSMENT: This is a 75-year-old female with a past medical history of coronary artery disease status post stenting, hypertension, COPD on 4 L of oxygen at home, depression. She was transferred to [facility] for evaluation of back pain secondary to an L4 burst fracture with retropulsion. Patient also received antibiotic therapy for community acquired pneumonia given gram-positive bacteremia prior to transfer. Subsequent blood cultures were negative. Patient currently completing course of doxycycline. Finally, patient was found to have suspicious chest x-ray findings for lung mass. Patient will require outpatient follow-up for brain MRI as well as a PET scan. Patient's family decided to transfer back to [facility] and to proceed with orthopedic surgery planning as outpatient. Detailed transfer packet available. . PLAN: Back pain 2/2 burst fractures of L2 and L4 vertebral bodies - [place] [facility] [place], in physical chart. MRI also shoing associated 4 mm osseous retropulsion alons superior aspect of L2 vertebral body and up to 5-6 mm osseous retropulsion at L4. - was evaluated by orthospine service. Recommendation for TSLO brace when out of bed. Surgical planning on outpatient basis. Patient and family wishes to return to [facility] for further PT needs. Concern for primary pulmonary malignancy - reviewed CT chest from 12/02/20 (at [facility]) - 2.1 cm asymmetric density in L upper low - irregular density in inferior R middle lobe - needs MRI brain, PET-CT and likely referral to oncology Hyponatremia - [facility] BMP - c/w salt tabs, water restriction Pneumonia - patient had productive cough with SOB at [facility] prior to transfer - [place] [facility] [place] showing patchy opacitiesin R mid lower lung and peripheal L upper mid lung - 12/02 cultures positive for staph hominis (1/2) and magdiel epi (2/2) - was transfered with IV zosyn - currently on doxycycline CAD s/p stent - occured > 10 years ago - Denies any chest pain, shortness of breath or palpitations - resume ASA and statin HTN - c/w Lisinopril, metoprolol and nifedipine Chronic COPD - No evidence of exacerbation - c/w inhaled therapy as ordered Chronic hypoxia - Patient is on 4L of oxygen via NC at home Depression - c/w Buspirone AAA - measured to 4.2 cm - outpatient f/u DVT prophylaxis - c/w Heparin Vital Signs Vital Signs Date Time Temp Pulse Resp B/P (MAP) Pulse Ox O2 Delivery O2 Flow Rate FiO2 12/11/20 00:05 96.8 76 20 164/75 (104) 98 Nasal Cannula 4.0 Home Medications Scheduled Aspirin (Aspirin) 81 Mg Tab.chew, 81 MG PO DAILY Buspirone HCl (Buspirone HCl) 10 Mg Tablet, 10 MG PO BID Lidocaine (Lidocaine) 5% Adh..patch, 1 PATCH TOP DAILY APPLIES TO LOWER BACK Lisinopril (Lisinopril) 20 Mg Tablet, 20 MG PO DAILY HOLD IF SBP<120 Metoprolol Succinate (Metoprolol Succinate) 50 Mg Tab.er.24h, 50 MG PO BID Nifedipine (Nifedipine ER) 30 Mg Tablet.er, 30 MG PO BID HOLD FOR SBP<120 Scheduled PRN Acetaminophen (Tylenol) 325 Mg Tablet, 650 MG PO Q4H PRN for HEADACHE OR MILD PAIN Ipratropium/Albuterol Sulfate (Iprat-Albut 0.5-3(2.5) mg/3 ml) 3 Ml Ampul.neb, 3 ML INH Q4H PRN for SHORTNESS OF BREATH Allergies Coded Allergies: No Known Allergies (Unverified , 12/01/20) A-FIB/CHADSVASC A-FIB History Current/History of A-Fib/PAF?: No TAYO FERRERA MD Dec 11, 2020 05:01
[2020-12-11] MEDS: METOPROLOL SUCC (TopROL XL) 50MG **XL** TAB PO SCH ×2 (05:47→21:17)
[2020-12-11] MEDS: HEPARIN SOD (PORCINE) 5000UNITS/ML 1ML VIAL/SYRINGE SC SCH ×3 (05:47→21:18)
[2020-12-11 06:00] VITALS: BP 138/60
[2020-12-11 06:21] LABS: BASO # 0.1 10^3/uL (0.0-0.2); EOS # 0.1 10^3/uL (0.0-0.5); EOS % 0.9 % (0.0-3.0); HEMATOCRIT 34.1 % (36.0-47.0); HEMOGLOBIN 11.4 g/dl (12.0-15.5); LYMPH # 1.3 10^3/uL (1.5-5.0); LYMPH % 12.8 % (24.0-44.0); MEAN CORPUSCULAR HGB CONC 33.4 g/dl (32.0-36.5); MEAN CORPUSCULAR VOLUME 92.7 fl (80.0-96.0); MONO # 0.9 10^3/uL (0.0-0.8); MONO % 8.6 % (2.0-8.0); NEUTROPHILS # 7.5 10^3/uL (1.5-8.5); NEUTROPHILS % 76.1 % (36.0-66.0); PLATELET COUNT, AUTOMATED 306 10^3/uL (150-450); RED BLOOD COUNT 3.68 10^6/uL (4.00-5.40); WHITE BLOOD COUNT 9.9 10^3/uL (4.0-10.0)
[2020-12-11 06:45] LABS: ALBUMIN 2.5 GM/DL (3.2-5.2); ALT/SGPT 23 U/L (12-78); BILIRUBIN,TOTAL 0.4 MG/DL (0.2-1.0); BLOOD UREA NITROGEN 15 MG/DL (7-18); CALCIUM LEVEL 8.5 MG/DL (8.8-10.2); CARBON DIOXIDE LEVEL 34 MEQ/L (21-32); CHLORIDE LEVEL 90 MEQ/L (98-107); GLOMERULAR FILTRATION RATE > 60.0 (>39); GLUCOSE, FASTING 78 MG/DL (70-100); MAGNESIUM LEVEL 1.7 MG/DL (1.8-2.4); POTASSIUM SERUM 4.7 MEQ/L (3.5-5.1); SODIUM LEVEL 129 MEQ/L (136-145); TOTAL PROTEIN 5.3 GM/DL (6.4-8.2)
[2020-12-11] MEDS: SODIUM CHLORIDE 1 GM TAB PO SCH ×2 (08:29→21:18)
[2020-12-11] MEDS: ASPIRIN 81 MG CHEW TABLET PO SCH (08:30)
[2020-12-11] MEDS: NIFEdipine 30 MG XL TAB PO SCH ×2 (08:30→21:17)
[2020-12-11] MEDS: DOXYCYCLINE HYCLATE 100MG TABLET PO SCH ×2 (08:30→21:18)
[2020-12-11] MEDS: busPIRone 10 MG TAB PO SCH ×2 (08:31→21:17)
[2020-12-11] MEDS: DOCUSATE SODIUM 100MG CAPSULE PO SCH ×2 (08:31→21:17)
[2020-12-11] MEDS: LIDOCAINE 5% (LIDODERM) PATCH TOP SCH (08:32)
[2020-12-11] MEDS ORDERED: MAG SULF 1GM/100ML (MAG RUN) 1 GM in IV 1 EA IV ONE (09:00)
[2020-12-11] MEDS: IPRATROPIUM 0.5MG/ALBUTEROL 2.5MG INH SOL UD 3ML (DUONEB) INH PRN ×2 (09:46→21:43)
--- NOTE | 2020-12-11 12:33 | IPNPDOC ---
Text Note Date of Service The patient was seen on 12/11/20. NOTE Subjective: Patient is a 75 year old female with a PMHx of CAD s/p stent, HTN, COPD (on 4L O2), Depression who presented to [facility] on 12/02 to 12/03 after she sustained a fall at home and landed on her L hip. Patient had reported stool / urine incontinence and had imaging with evidence of severe L4 verteral body compression fracture with retropulsion. Patient was transferred to [facility] for further evaluation by neurosurgery. Prior to transfer, patient had positive blood cultures for staph hominis and staph epidermidis which did not regrow on repeat cultures from 12/03. Patient has suspected pneumonia and was in for transferred with IV Zosyn. Patient transferred back from [facility] on 12/10. Reviewed hospital course. Patient was evaluated by ortho-spine service. Cardiology and Pulmonology were also consulted for risk stratification. Patient was noted to be high risk and they recommended adding statin and resume aspirin if no surgical plan was in place. The patient recommended ECHO given history of gram-positive bacteremia that showed an EF of 41-49%. During the admission, patient also became unresponsive after dose of Ativan given for MRI and improved with reversal. Also concerning was the left upper lobe 2.1 cm density with irregular margins, as well as an irregular density in the inferior right middle lobe. Concern for malignant process. Patient was evaluated by thoracic surgery service at [facility] and recommended brain MRI, PET scan. Patient's family opted to return to [facility] and continue with outpatient surgical planning. Patient will need referral to oncology service for Pap CT and brain MRI. Patient was seen and examined at the bedside. Patient reports that she feels relatively fine, although she noted that her transport here was difficult because of the bumpy ride. She noted that she experiences a lot of back pain. Currently, she denies any nausea, vomiting, chest pain, shortness breath, palpitations, abdominal pain, diarrhea, or urinary discomfort. Objective: Vitals (See below) General: Lying in bed, appears comfortable, AAOx3 HEENT: NC, AT CVS: RRR, +S1S2 Lungs: Fair air entry b/l, no evidence of wheezing, rales or rhonchi Abdomen: Soft, ND, NT Extremities: No evidence of edema, - Calf tenderness Imaging: - No new imaging Assessment and plan: Back pain - likely 2/2 burst fractures of L2 and L4 vertebral bodies - MRI imaging from [facility] was reviewed and showed associated 4 mm osseous retropulsion along superior aspect of L2 vertebral body and up to 5-6 mm osseous retropulsion at L4. - Ortho-spine service had evaluated patient; Recommended TSLO brace when out of bed - Patient and family wishes to return to [facility] for further PT needs - Will start PT / OT / ARU evaluation Concern for primary pulmonary malignancy - reviewed CT chest from 12/02/20 (at [facility]) - 2.1 cm asymmetric density in L upper low - irregular density in inferior R middle lobe - needs MRI brain / PET-CT - Will have outpatient follow-up with oncology on discharge Chronic Hyponatremia - Patient was started on salt tabs / water restriction from [facility] Community acquired pneumonia - Upon initial arrival to [facility] patient had reported productive cough; currenlty patient symptomatically - Hemodynamically stable and afebrile - 12/02 cultures positive for staph hominis (1/2) and magdiel epi (2/2) - ECHO completed at [facility] negative for malignancy - s/p Zosyn; c/w Doxycycline CAD s/p stent - Denies any chest pain, shortness of breath or palpitations - > 10 years ago - c/w ASA and statin HTN - c/w Lisinopril, Metoprolol and nifedipine Chronic COPD - No evidence of exacerbation - c/w inhaled therapy as ordered Chronic hypoxia - Patient is on 4L of oxygen via NC at home Depression - c/w Buspirone AAA - measured to 4.2 cm - Will have outpatient follow-up with vascular surgery DVT prophylaxis - c/w Heparin Disposition: - Awaiting clinical improvement VSMorgan, I+O VSMorgan, I+O Laboratory Tests 12/11/20 05:52 Vital Signs Date Time Temp Pulse Resp B/P (MAP) Pulse Ox O2 Delivery O2 Flow Rate FiO2 12/11/20 08:30 138/60 12/11/20 06:00 97.0 85 18 98 Nasal Cannula 4.0 I&O- Last 24 Hours up to 6 AM 12/11/20 06:00 Intake Total 50 ml Output Total 500 ml Balance -450 ml COLLINS CLARK MD Dec 11, 2020 12:33
[2020-12-11 14:00] VITALS: BP 152/72
[2020-12-11] MEDS: ACETAMINOPHEN TAB 650MG DOSE (2X325MG) PO PRN (21:17)
[2020-12-11] MEDS: **NOTE PATIENT COMMENT** MISC XX SCH (21:19)
[2020-12-11 22:00] VITALS: BP 149/67
[2020-12-12] MEDS: HEPARIN SOD (PORCINE) 5000UNITS/ML 1ML VIAL/SYRINGE SC SCH ×3 (05:58→21:37)
[2020-12-12 06:00] VITALS: BP 159/72
[2020-12-12 06:14] LABS: BASO # 0.1 10^3/uL (0.0-0.2); BASO % 1.3 % (0.0-1.0); EOS # 0.1 10^3/uL (0.0-0.5); EOS % 1.2 % (0.0-3.0); LYMPH # 1.2 10^3/uL (1.5-5.0); LYMPH % 13.6 % (24.0-44.0); MEAN CORPUSCULAR HEMOGLOBIN 30.9 pg (27.0-33.0); MEAN CORPUSCULAR HGB CONC 32.4 g/dl (32.0-36.5); MEAN CORPUSCULAR VOLUME 95.5 fl (80.0-96.0); MONO # 0.7 10^3/uL (0.0-0.8); MONO % 8.4 % (2.0-8.0); NEUTROPHILS # 6.5 10^3/uL (1.5-8.5); NEUTROPHILS % 75.2 % (36.0-66.0); PLATELET COUNT, AUTOMATED 299 10^3/uL (150-450); RED BLOOD COUNT 3.56 10^6/uL (4.00-5.40); WHITE BLOOD COUNT 8.6 10^3/uL (4.0-10.0)
[2020-12-12 06:32] LABS: BLOOD UREA NITROGEN 14 MG/DL (7-18); CALCIUM LEVEL 8.4 MG/DL (8.8-10.2); CARBON DIOXIDE LEVEL 37 MEQ/L (21-32); CHLORIDE LEVEL 94 MEQ/L (98-107); CREATININE FOR GFR 0.26 MG/DL (0.55-1.30); GLOMERULAR FILTRATION RATE > 60.0 (>39); GLUCOSE, FASTING 73 MG/DL (70-100); POTASSIUM SERUM 4.2 MEQ/L (3.5-5.1); SODIUM LEVEL 133 MEQ/L (136-145)
[2020-12-12] MEDS: DOCUSATE SODIUM 100MG CAPSULE PO SCH ×2 (09:25→21:35)
[2020-12-12] MEDS: ASPIRIN 81 MG CHEW TABLET PO SCH (09:25)
[2020-12-12] MEDS: busPIRone 10 MG TAB PO SCH ×2 (09:25→21:35)
[2020-12-12] MEDS: NIFEdipine 30 MG XL TAB PO SCH ×2 (09:26→21:36)
[2020-12-12] MEDS: SODIUM CHLORIDE 1 GM TAB PO SCH ×2 (09:26→21:35)
[2020-12-12] MEDS: DOXYCYCLINE HYCLATE 100MG TABLET PO SCH ×2 (09:26→21:35)
[2020-12-12] MEDS: LIDOCAINE 5% (LIDODERM) PATCH TOP SCH (09:27)
[2020-12-12] MEDS: ACETAMINOPHEN TAB 650MG DOSE (2X325MG) PO PRN (09:59)
--- NOTE | 2020-12-12 10:18 | IPNPDOC ---
Text Note Date of Service The patient was seen on 12/12/20. NOTE Subjective: Patient is a 75 year old female with a PMHx of CAD s/p stent, HTN, COPD (on 4L O2), Depression who presented to [facility] on 12/02 to 12/03 after she sustained a fall at home and landed on her L hip. Patient had reported stool / urine incontinence and had imaging with evidence of severe L4 verteral body compression fracture with retropulsion. Patient was transferred to [facility] for further evaluation by neurosurgery. Prior to transfer, patient had positive blood cultures for staph hominis and staph epidermidis which did not regrow on repeat cultures from 12/03. Patient has suspected pneumonia and was in for transferred with IV Zosyn. Patient transferred back from [facility] on 12/10. Reviewed hospital course. Patient was evaluated by ortho-spine service. Cardiology and Pulmonology were also consulted for risk stratification. Patient was noted to be high risk and they recommended adding statin and resume aspirin if no surgical plan was in place. The patient recommended ECHO given history of gram-positive bacteremia that showed an EF of 41-49%. During the admission, patient also became unresponsive after dose of Ativan given for MRI and improved with reversal. Also concerning was the left upper lobe 2.1 cm density with irregular margins, as well as an irregular density in the inferior right middle lobe. Concern for malignant process. Patient was evaluated by thoracic surgery service at [facility] and recommended brain MRI, PET scan. Patient's family opted to return to [facility] and continue with outpatient surgical planning. Patient will need referral to oncology service for Pap CT and brain MRI. Patient was seen and examined at the bedside. Patient reports that yesterday she was able to get out of bed, sitting in a chair at work with physical therapy today. She reports that her pain is better controlled. Denies any nausea, vomiting, abdominal pain, diarrhea, or urinary discomfort. Objective: Vitals (See below) General: Patient is sitting up in bed eating breakfast appears comfortable, is awake and alert, oriented 3 HEENT: NC, AT CVS: +S1S2 Lungs: There is fair air entry bilaterally without evidence of wheezing, crackles, rhonchi Abdomen: Soft, nondistended, nontender Extremities: Lower extremities do not reveal any significant edema Imaging: - No new imaging Assessment and plan: Back pain - likely 2/2 burst fractures of L2 and L4 vertebral bodies - MRI imaging from [facility] was reviewed and showed associated 4 mm osseous retropulsion along superior aspect of L2 vertebral body and up to 5-6 mm osseous retropulsion at L4. - Ortho-spine service had evaluated patient; Recommended TSLO brace when out of bed - Patient and family wishes to return to [facility] for further PT needs - c/w PT / OT; ARU evaluation pending Concern for primary pulmonary malignancy - reviewed CT chest from 12/02/20 (at [facility]) - 2.1 cm asymmetric density in L upper low - irregular density in inferior R middle lobe - Needs MRI brain / PET-CT to be completed as an outpatient - Will have outpatient follow-up with oncology on discharge Chronic Hyponatremia - Improved / Stable - Patient was started on salt tabs / water restriction from [facility] Community acquired pneumonia - Upon initial arrival to [facility] patient had reported productive cough; currenlty patient symptomatically - Hemodynamically stable and afebrile - 12/02 cultures positive for staph hominis (1/2) and magdiel epi (2/2) - ECHO completed at [facility] negative for malignancy - s/p Zosyn; c/w Doxycycline (Antibiotic day #10) - Will discontinue tonight CAD s/p stent - Denies any chest pain, shortness of breath or palpitations - > 10 years ago - c/w ASA and statin HTN - c/w Lisinopril, Metoprolol and nifedipine Chronic COPD - No evidence of exacerbation - c/w inhaled therapy as ordered Chronic hypoxia - Patient is on 4L of oxygen via NC at home Depression - c/w Buspirone AAA - measured to 4.2 cm - Will have outpatient follow-up with vascular surgery DVT prophylaxis - c/w Heparin Disposition: - Awaiting clinical improvement - Awaiting ARU placement VS,Fishbone, I+O VS, Fishbone, I+O Laboratory Tests 12/12/20 05:42 Vital Signs Date Time Temp Pulse Resp B/P (MAP) Pulse Ox O2 Delivery O2 Flow Rate FiO2 12/12/20 09:27 135/62 12/12/20 06:00 97.0 68 16 99 Nasal Cannula 4.0 I&O- Last 24 Hours up to 6 AM 12/12/20 06:00 Intake Total 1720 ml Output Total 1400 ml Balance 320 ml COLLINS CLARK MD Dec 12, 2020 10:18
[2020-12-12 14:00] VITALS: BP 155/71
[2020-12-12] MEDS: IPRATROPIUM 0.5MG/ALBUTEROL 2.5MG INH SOL UD 3ML (DUONEB) INH PRN (14:57)
[2020-12-12] MEDS: METOPROLOL SUCC (TopROL XL) 50MG **XL** TAB PO SCH (21:36)
[2020-12-12] MEDS: **NOTE PATIENT COMMENT** MISC XX SCH (21:37)
[2020-12-12 22:00] VITALS: BP 165/77
[2020-12-13] MEDS: HEPARIN SOD (PORCINE) 5000UNITS/ML 1ML VIAL/SYRINGE SC SCH ×3 (05:02→21:11)
[2020-12-13 05:44] LABS: BASO # 0.1 10^3/uL (0.0-0.2); BASO % 1.3 % (0.0-1.0); EOS # 0.1 10^3/uL (0.0-0.5); EOS % 0.5 % (0.0-3.0); HEMATOCRIT 34.6 % (36.0-47.0); HEMOGLOBIN 11.3 g/dl (12.0-15.5); LYMPH # 1.1 10^3/uL (1.5-5.0); LYMPH % 11.3 % (24.0-44.0); MEAN CORPUSCULAR HEMOGLOBIN 31.3 pg (27.0-33.0); MEAN CORPUSCULAR HGB CONC 32.7 g/dl (32.0-36.5); MEAN CORPUSCULAR VOLUME 95.8 fl (80.0-96.0); MONO # 0.7 10^3/uL (0.0-0.8); MONO % 6.9 % (2.0-8.0); NEUTROPHILS # 7.9 10^3/uL (1.5-8.5); NEUTROPHILS % 79.6 % (36.0-66.0); PLATELET COUNT, AUTOMATED 317 10^3/uL (150-450); RED BLOOD COUNT 3.61 10^6/uL (4.00-5.40); WHITE BLOOD COUNT 9.9 10^3/uL (4.0-10.0)
[2020-12-13 06:00] VITALS: BP 148/74
[2020-12-13] MEDS: IPRATROPIUM 0.5MG/ALBUTEROL 2.5MG INH SOL UD 3ML (DUONEB) INH PRN ×2 (06:13→13:56)
[2020-12-13 06:14] LABS: BLOOD UREA NITROGEN 13 MG/DL (7-18); CREATININE FOR GFR 0.21 MG/DL (0.55-1.30); GLUCOSE, FASTING 74 MG/DL (70-100)
[2020-12-13 06:15] LABS: CALCIUM LEVEL 8.2 MG/DL (8.8-10.2); CARBON DIOXIDE LEVEL 37 MEQ/L (21-32); CHLORIDE LEVEL 93 MEQ/L (98-107); GLOMERULAR FILTRATION RATE > 60.0 (>39); MAGNESIUM LEVEL 1.8 MG/DL (1.8-2.4); POTASSIUM SERUM 3.9 MEQ/L (3.5-5.1); SODIUM LEVEL 130 MEQ/L (136-145)
[2020-12-13] MEDS: ACETAMINOPHEN TAB 650MG DOSE (2X325MG) PO PRN ×2 (09:28→21:13)
[2020-12-13] MEDS: DOCUSATE SODIUM 100MG CAPSULE PO SCH ×2 (09:28→21:10)
[2020-12-13] MEDS: NIFEdipine 30 MG XL TAB PO SCH ×2 (09:28→21:11)
[2020-12-13] MEDS: ASPIRIN 81 MG CHEW TABLET PO SCH (09:28)
[2020-12-13] MEDS: SODIUM CHLORIDE 1 GM TAB PO SCH (09:29)
[2020-12-13] MEDS: LIDOCAINE 5% (LIDODERM) PATCH TOP SCH (09:29)
[2020-12-13] MEDS: busPIRone 10 MG TAB PO SCH ×2 (09:29→21:10)
--- NOTE | 2020-12-13 10:56 | IPNPDOC ---
Text Note Date of Service The patient was seen on 12/13/20. NOTE Subjective: Patient is a 75 year old female with a PMHx of CAD s/p stent, HTN, COPD (on 4L O2), Depression who presented to [facility] on 12/02 to 12/03 after she sustained a fall at home and landed on her L hip. Patient had reported stool / urine incontinence and had imaging with evidence of severe L4 verteral body compression fracture with retropulsion. Patient was transferred to [facility] for further evaluation by neurosurgery. Prior to transfer, patient had positive blood cultures for staph hominis and staph epidermidis which did not regrow on repeat cultures from 12/03. Patient has suspected pneumonia and was in for transferred with IV Zosyn. Patient transferred back from [facility] on 12/10. Reviewed hospital course. Patient was evaluated by ortho-spine service. Cardiology and Pulmonology were also consulted for risk stratification. Patient was noted to be high risk and they recommended adding statin and resume aspirin if no surgical plan was in place. The patient recommended ECHO given history of gram-positive bacteremia that showed an EF of 41-49%. During the admission, patient also became unresponsive after dose of Ativan given for MRI and improved with reversal. Also concerning was the left upper lobe 2.1 cm density with irregular margins, as well as an irregular density in the inferior right middle lobe. Concern for malignant process. Patient was evaluated by thoracic surgery service at [facility] and recommended brain MRI, PET scan. Patient's family opted to return to [facility] and continue with outpatient surgical planning. Patient will need referral to oncology service for Pap CT and brain MRI. Patient was seen and examined at the bedside. Patient is seen eating breakfast had been working with physical therapy has not been able to ambulate far. Patient ambulated 60 feet with moderate assistance. Physical therapy, still recommending additional rehabilitation. Patient denies any chest pain, shortness breath, palpitations, nausea, vomiting, diarrhea, or urinary discomfort. Patient reports that her back pain is tolerable with her current regimen. Objective: Vitals (See below) General: Patient is sitting up in bed eating breakfast appears comfortable, not in any acute chest with alert, oriented 3 HEENT: NC, AT CVS: +S1S2 Lungs: Lungs appear to have fair air entry bilaterally without evidence of wheezing, rhonchi Abdomen: Abdomen remains soft without appreciated distention or tenderness Extremities: No evidence of lower extremity edema Imaging: - No new imaging Assessment and plan: Back pain - likely 2/2 burst fractures of L2 and L4 vertebral bodies - MRI imaging from [facility] was reviewed and showed associated 4 mm osseous retropulsion along superior aspect of L2 vertebral body and up to 5-6 mm osseous retropulsion at L4. - Ortho-spine service had evaluated patient; Recommended TSLO brace when out of bed - Patient and family wishes to return to [facility] for further PT needs - c/w PT / OT - still with minimal distance and requiring moderate assistance; ARU evaluation complete - awaiting transition to ARU Concern for primary pulmonary malignancy - reviewed CT chest from 12/02/20 (at [facility]) - 2.1 cm asymmetric density in L upper low - Irregular density in inferior R middle lobe - Needs MRI brain / PET-CT to be completed as an outpatient - Will have outpatient follow-up with oncology on discharge Chronic Hyponatremia - Improved / Stable - This has remained relatively stable since admission - Patient was started on salt tabs / water restriction from [facility] Community acquired pneumonia - Patient denies any significant shortness breath, palpitations - She remains hemodynamically stable and afebrile - 12/02 cultures positive for staph hominis (1/2) and magdiel epi (2/2) - ECHO completed at [facility] negative for malignancy - s/p Zosyn and s/p Doxycycline (Completed 10 day antibiotic course) CAD s/p stent - Denies any chest pain, shortness of breath or palpitations - > 10 years ago - c/w ASA and statin HTN - c/w Lisinopril, Metoprolol and nifedipine Chronic COPD - No evidence of exacerbation - c/w inhaled therapy as ordered Chronic hypoxia - Patient is on 4L of oxygen via NC at home Depression - c/w Buspirone AAA - measured to 4.2 cm - Will have outpatient follow-up with vascular surgery DVT prophylaxis - c/w Heparin Disposition: - Awaiting clinical improvement - Awaiting ARU placement VS,Fishbone, I+O VS, Fishbone, I+O Laboratory Tests 12/13/20 05:24 Vital Signs Date Time Temp Pulse Resp B/P (MAP) Pulse Ox O2 Delivery O2 Flow Rate FiO2 12/13/20 09:28 155/67 12/13/20 06:00 97.6 76 18 95 Nasal Cannula 4.0 I&O- Last 24 Hours up to 6 AM 12/13/20 06:00 Intake Total 1440 ml Output Total 2100 ml Balance -660 ml COLLINS CLARK MD Dec 13, 2020 10:56
[2020-12-13 14:00] VITALS: BP 171/76
[2020-12-13 20:50] VITALS: BP 140/56
[2020-12-13] MEDS: METOPROLOL SUCC (TopROL XL) 50MG **XL** TAB PO SCH (21:11)
[2020-12-13] MEDS: **NOTE PATIENT COMMENT** MISC XX SCH (21:12)
[2020-12-14] MEDS: HEPARIN SOD (PORCINE) 5000UNITS/ML 1ML VIAL/SYRINGE SC SCH ×3 (05:27→21:53)
[2020-12-14 06:00] VITALS: BP 152/73
[2020-12-14 06:32] LABS: BASO # 0.2 10^3/uL (0.0-0.2); BASO % 1.9 % (0.0-1.0); EOS # 0.1 10^3/uL (0.0-0.5); EOS % 0.7 % (0.0-3.0); HEMATOCRIT 32.3 % (36.0-47.0); HEMOGLOBIN 10.5 g/dl (12.0-15.5); LYMPH # 1.2 10^3/uL (1.5-5.0); LYMPH % 14.6 % (24.0-44.0); MEAN CORPUSCULAR HEMOGLOBIN 31.4 pg (27.0-33.0); MEAN CORPUSCULAR HGB CONC 32.5 g/dl (32.0-36.5); MEAN CORPUSCULAR VOLUME 96.7 fl (80.0-96.0); MONO # 0.5 10^3/uL (0.0-0.8); MONO % 5.9 % (2.0-8.0); NEUTROPHILS # 6.2 10^3/uL (1.5-8.5); NEUTROPHILS % 76.5 % (36.0-66.0); PLATELET COUNT, AUTOMATED 300 10^3/uL (150-450); RED BLOOD COUNT 3.34 10^6/uL (4.00-5.40)
[2020-12-14 07:05] LABS: BLOOD UREA NITROGEN 11 MG/DL (7-18); CALCIUM LEVEL 8.4 MG/DL (8.8-10.2); CARBON DIOXIDE LEVEL 38 MEQ/L (21-32); CHLORIDE LEVEL 94 MEQ/L (98-107); CREATININE FOR GFR 0.17 MG/DL (0.55-1.30); GLOMERULAR FILTRATION RATE > 60.0 (>39); GLUCOSE, FASTING 74 MG/DL (70-100); MAGNESIUM LEVEL 1.8 MG/DL (1.8-2.4); POTASSIUM SERUM 3.8 MEQ/L (3.5-5.1); SODIUM LEVEL 133 MEQ/L (136-145)
[2020-12-14] MEDS: IPRATROPIUM 0.5MG/ALBUTEROL 2.5MG INH SOL UD 3ML (DUONEB) INH PRN (09:18)
[2020-12-14] MEDS: busPIRone 10 MG TAB PO SCH ×2 (09:37→20:05)
[2020-12-14] MEDS: DOCUSATE SODIUM 100MG CAPSULE PO SCH ×2 (09:37→20:05)
[2020-12-14] MEDS: ASPIRIN 81 MG CHEW TABLET PO SCH (09:37)
[2020-12-14] MEDS: LIDOCAINE 5% (LIDODERM) PATCH TOP SCH (09:41)
[2020-12-14] MEDS: NIFEdipine 30 MG XL TAB PO SCH ×2 (09:43→20:06)
--- NOTE | 2020-12-14 12:14 | IPNPDOC ---
Text Note Date of Service The patient was seen on 12/14/20. NOTE Subjective: Patient is a 75 year old female with a PMHx of CAD s/p stent, HTN, COPD (on 4L O2), Depression who presented to [facility] on 12/02 to 12/03 after she sustained a fall at home and landed on her L hip. Patient had reported stool / urine incontinence and had imaging with evidence of severe L4 verteral body compression fracture with retropulsion. Patient was transferred to [facility] for further evaluation by neurosurgery. Prior to transfer, patient had positive blood cultures for staph hominis and staph epidermidis which did not regrow on repeat cultures from 12/03. Patient has suspected pneumonia and was in for transferred with IV Zosyn. Patient transferred back from [facility] on 12/10. Reviewed hospital course. Patient was evaluated by ortho-spine service. Cardiology and Pulmonology were also consulted for risk stratification. Patient was noted to be high risk and they recommended adding statin and resume aspirin if no surgical plan was in place. The patient recommended ECHO given history of gram-positive bacteremia that showed an EF of 41-49%. During the admission, patient also became unresponsive after dose of Ativan given for MRI and improved with reversal. Also concerning was the left upper lobe 2.1 cm density with irregular margins, as well as an irregular density in the inferior right middle lobe. Concern for malignant process. Patient was evaluated by thoracic surgery service at [facility] and recommended brain MRI, PET scan. Patient's family opted to return to [facility] and continue with outpatient surgical planning. Patient will need referral to oncology service for Pap CT and brain MRI. Patient was seen and examined at the bedside. Again. Patient has been continuing to work with physical therapy reports that she does relatively well, although is requiring a lot of assistance. Denies any nausea, vomiting, chest pain, shortness breath, palpitations, abdominal pain, constipation or diarrhea. Objective: Vitals (See below) General: Patient is sitting up in bed eating breakfast. Denies any pain, appears comfortable, awake and alert, oriented 3 HEENT: NC, AT CVS: +S1S2 Lungs: Air entry is fair bilaterally without evidence of wheezing, crackles or rhonchi on auscultation Abdomen: Again, abdomen is soft, there does not appear to be any appreciated tenderness or distention Extremities: No edema Imaging: - No new imaging Assessment and plan: Acute back pain - likely 2/2 burst fractures of L2 and L4 vertebral bodies - MRI imaging from [facility] was reviewed and showed associated 4 mm osseous retropulsion along superior aspect of L2 vertebral body and up to 5-6 mm osseous retropulsion at L4. - Ortho-spine service had evaluated patient; Recommended TSLO brace when out of bed - Patient and family wishes to return to [facility] for further PT needs - c/w PT / OT; recommending continued rehabilitation Concern for primary pulmonary malignancy - reviewed CT chest from 12/02/20 (at [facility]) - 2.1 cm asymmetric density in L upper low - Irregular density in inferior R middle lobe - Needs MRI brain / PET-CT to be completed as an outpatient - Will have outpatient follow-up with oncology on discharge Chronic Hyponatremia - Has remained relatively stable - s/p Salt tabs - c/w Fluid restriction Community acquired pneumonia - Patient denies any significant shortness breath, palpitations - She remains hemodynamically stable and afebrile - 12/02 cultures positive for staph hominis (1/2) and magdiel epi (2/2) - ECHO completed at [facility] negative for malignancy - s/p Zosyn and s/p Doxycycline (Completed 10 day antibiotic course) CAD s/p stent - Denies any chest pain, shortness of breath or palpitations - > 10 years ago - c/w ASA and statin HTN - c/w Lisinopril, Metoprolol and nifedipine Chronic COPD - No evidence of exacerbation - c/w inhaled therapy as ordered Chronic hypoxia - Patient is on 4L of oxygen via NC at home Depression - c/w Buspirone AAA - measured to 4.2 cm - Will have outpatient follow-up with vascular surgery DVT prophylaxis - c/w Heparin Disposition: - Awaiting clinical improvement - Awaiting ARU placement VS,Fishbone, I+O VS, Fishbone, I+O Laboratory Tests 12/14/20 06:17 Vital Signs Date Time Temp Pulse Resp B/P (MAP) Pulse Ox O2 Delivery O2 Flow Rate FiO2 12/14/20 09:50 4.0 12/14/20 09:45 154/70 12/14/20 06:00 98.1 99 18 98 Nasal Cannula I&O- Last 24 Hours up to 6 AM 12/14/20 06:00 Intake Total 1190 ml Output Total 800 ml Balance 390 ml COLLINS CLARK MD Dec 14, 2020 12:14
[2020-12-14 14:00] VITALS: BP 156/64
[2020-12-14] MEDS: METOPROLOL SUCC (TopROL XL) 50MG **XL** TAB PO SCH ×2 (14:47→20:05)
[2020-12-14] MEDS: ACETAMINOPHEN TAB 650MG DOSE (2X325MG) PO PRN (20:05)
[2020-12-14] MEDS: **NOTE PATIENT COMMENT** MISC XX SCH (20:12)
[2020-12-15] MEDS: HEPARIN SOD (PORCINE) 5000UNITS/ML 1ML VIAL/SYRINGE SC SCH ×3 (05:46→21:01)
[2020-12-15 06:00] VITALS: BP 107/58
[2020-12-15 06:40] LABS: BASO # 0.2 10^3/uL (0.0-0.2); EOS # 0.1 10^3/uL (0.0-0.5); EOS % 0.6 % (0.0-3.0); HEMATOCRIT 32.4 % (36.0-47.0); HEMOGLOBIN 10.4 g/dl (12.0-15.5); LYMPH # 1.5 10^3/uL (1.5-5.0); LYMPH % 16.6 % (24.0-44.0); MEAN CORPUSCULAR HEMOGLOBIN 30.7 pg (27.0-33.0); MEAN CORPUSCULAR HGB CONC 32.1 g/dl (32.0-36.5); MEAN CORPUSCULAR VOLUME 95.6 fl (80.0-96.0); MONO # 0.6 10^3/uL (0.0-0.8); MONO % 6.2 % (2.0-8.0); NEUTROPHILS # 6.7 10^3/uL (1.5-8.5); NEUTROPHILS % 74.3 % (36.0-66.0); PLATELET COUNT, AUTOMATED 310 10^3/uL (150-450); RED BLOOD COUNT 3.39 10^6/uL (4.00-5.40)
[2020-12-15 07:06] LABS: BLOOD UREA NITROGEN 13 MG/DL (7-18); CALCIUM LEVEL 8.5 MG/DL (8.8-10.2); CARBON DIOXIDE LEVEL 38 MEQ/L (21-32); CHLORIDE LEVEL 92 MEQ/L (98-107); CREATININE FOR GFR 0.23 MG/DL (0.55-1.30); GLOMERULAR FILTRATION RATE > 60.0 (>39); GLUCOSE, FASTING 74 MG/DL (70-100); MAGNESIUM LEVEL 1.8 MG/DL (1.8-2.4); POTASSIUM SERUM 3.9 MEQ/L (3.5-5.1); SODIUM LEVEL 131 MEQ/L (136-145)
[2020-12-15] MEDS: IPRATROPIUM 0.5MG/ALBUTEROL 2.5MG INH SOL UD 3ML (DUONEB) INH PRN (09:43)
[2020-12-15] MEDS: LIDOCAINE 5% (LIDODERM) PATCH TOP SCH (10:28)
[2020-12-15] MEDS: DOCUSATE SODIUM 100MG CAPSULE PO SCH ×2 (10:29→20:25)
[2020-12-15] MEDS: busPIRone 10 MG TAB PO SCH ×2 (10:29→20:25)
[2020-12-15] MEDS: METOPROLOL SUCC (TopROL XL) 50MG **XL** TAB PO SCH ×2 (10:29→20:27)
[2020-12-15] MEDS: ASPIRIN 81 MG CHEW TABLET PO SCH (10:29)
[2020-12-15] MEDS: NIFEdipine 30 MG XL TAB PO SCH ×2 (10:29→20:27)
[2020-12-15] MEDS: ACETAMINOPHEN TAB 650MG DOSE (2X325MG) PO PRN (20:27)
[2020-12-15] MEDS: **NOTE PATIENT COMMENT** MISC XX SCH (20:27)
[2020-12-16] MEDS: HEPARIN SOD (PORCINE) 5000UNITS/ML 1ML VIAL/SYRINGE SC SCH ×3 (05:35→21:19)
[2020-12-16 06:00] VITALS: BP 153/73
[2020-12-16 06:32] LABS: BASO # 0.1 10^3/uL (0.0-0.2); BASO % 1.8 % (0.0-1.0); EOS # 0.1 10^3/uL (0.0-0.5); EOS % 0.8 % (0.0-3.0); HEMATOCRIT 34.4 % (36.0-47.0); HEMOGLOBIN 11.2 g/dl (12.0-15.5); LYMPH # 1.6 10^3/uL (1.5-5.0); LYMPH % 21.5 % (24.0-44.0); MEAN CORPUSCULAR HEMOGLOBIN 31.5 pg (27.0-33.0); MEAN CORPUSCULAR HGB CONC 32.6 g/dl (32.0-36.5); MEAN CORPUSCULAR VOLUME 96.6 fl (80.0-96.0); MONO # 0.5 10^3/uL (0.0-0.8); MONO % 6.9 % (2.0-8.0); NEUTROPHILS % 68.7 % (36.0-66.0); PLATELET COUNT, AUTOMATED 324 10^3/uL (150-450); RED BLOOD COUNT 3.56 10^6/uL (4.00-5.40); WHITE BLOOD COUNT 7.2 10^3/uL (4.0-10.0)
[2020-12-16 06:59] LABS: BLOOD UREA NITROGEN 10 MG/DL (7-18); CALCIUM LEVEL 8.4 MG/DL (8.8-10.2); CARBON DIOXIDE LEVEL 41 MEQ/L (21-32); CHLORIDE LEVEL 91 MEQ/L (98-107); CREATININE FOR GFR 0.24 MG/DL (0.55-1.30); GLOMERULAR FILTRATION RATE > 60.0 (>39); GLUCOSE, FASTING 73 MG/DL (70-100); MAGNESIUM LEVEL 2.1 MG/DL (1.8-2.4); POTASSIUM SERUM 4.2 MEQ/L (3.5-5.1); SODIUM LEVEL 132 MEQ/L (136-145)
[2020-12-16] MEDS: LIDOCAINE 5% (LIDODERM) PATCH TOP SCH (09:46)
[2020-12-16] MEDS: ASPIRIN 81 MG CHEW TABLET PO SCH (09:46)
[2020-12-16] MEDS: DOCUSATE SODIUM 100MG CAPSULE PO SCH ×2 (09:46→21:20)
[2020-12-16] MEDS: busPIRone 10 MG TAB PO SCH ×2 (09:47→21:19)
[2020-12-16] MEDS: METOPROLOL SUCC (TopROL XL) 50MG **XL** TAB PO SCH ×2 (09:57→21:20)
[2020-12-16] MEDS: NIFEdipine 30 MG XL TAB PO SCH ×2 (09:57→21:20)
[2020-12-16] MEDS: ACETAMINOPHEN TAB 650MG DOSE (2X325MG) PO PRN ×2 (09:57→21:19)
[2020-12-16] MEDS: IPRATROPIUM 0.5MG/ALBUTEROL 2.5MG INH SOL UD 3ML (DUONEB) INH PRN (15:20)
[2020-12-16] MEDS: **NOTE PATIENT COMMENT** MISC XX SCH (21:20)
[2020-12-17] MEDS: IPRATROPIUM 0.5MG/ALBUTEROL 2.5MG INH SOL UD 3ML (DUONEB) INH PRN ×3 (00:43→18:40)
[2020-12-17 06:00] VITALS: BP 153/67
[2020-12-17 06:34] LABS: BASO # 0.1 10^3/uL (0.0-0.2); BASO % 1.4 % (0.0-1.0); EOS # 0.1 10^3/uL (0.0-0.5); EOS % 0.9 % (0.0-3.0); HEMATOCRIT 32.5 % (36.0-47.0); HEMOGLOBIN 10.3 g/dl (12.0-15.5); LYMPH # 1.3 10^3/uL (1.5-5.0); LYMPH % 16.2 % (24.0-44.0); MEAN CORPUSCULAR HEMOGLOBIN 30.7 pg (27.0-33.0); MEAN CORPUSCULAR HGB CONC 31.7 g/dl (32.0-36.5); MONO # 0.5 10^3/uL (0.0-0.8); MONO % 6.3 % (2.0-8.0); NEUTROPHILS # 6.1 10^3/uL (1.5-8.5); PLATELET COUNT, AUTOMATED 308 10^3/uL (150-450); RED BLOOD COUNT 3.35 10^6/uL (4.00-5.40); WHITE BLOOD COUNT 8.1 10^3/uL (4.0-10.0)
[2020-12-17] MEDS: HEPARIN SOD (PORCINE) 5000UNITS/ML 1ML VIAL/SYRINGE SC SCH ×3 (06:47→21:21)
[2020-12-17 07:02] LABS: BLOOD UREA NITROGEN 12 MG/DL (7-18); CALCIUM LEVEL 8.7 MG/DL (8.8-10.2); CARBON DIOXIDE LEVEL 39 MEQ/L (21-32); CHLORIDE LEVEL 92 MEQ/L (98-107); CREATININE FOR GFR 0.29 MG/DL (0.55-1.30); GLOMERULAR FILTRATION RATE > 60.0 (>39); GLUCOSE, FASTING 73 MG/DL (70-100); MAGNESIUM LEVEL 1.9 MG/DL (1.8-2.4); POTASSIUM SERUM 3.9 MEQ/L (3.5-5.1); SODIUM LEVEL 134 MEQ/L (136-145)
[2020-12-17] MEDS: ASPIRIN 81 MG CHEW TABLET PO SCH (09:29)
[2020-12-17] MEDS: LIDOCAINE 5% (LIDODERM) PATCH TOP SCH (09:29)
[2020-12-17] MEDS: busPIRone 10 MG TAB PO SCH ×2 (09:29→21:21)
[2020-12-17] MEDS: ACETAMINOPHEN TAB 650MG DOSE (2X325MG) PO PRN (09:29)
[2020-12-17] MEDS: DOCUSATE SODIUM 100MG CAPSULE PO SCH ×2 (09:29→21:21)
[2020-12-17] MEDS: METOPROLOL SUCC (TopROL XL) 50MG **XL** TAB PO SCH ×2 (09:31→21:22)
[2020-12-17] MEDS: NIFEdipine 30 MG XL TAB PO SCH ×2 (09:31→21:22)
[2020-12-17] MEDS: **NOTE PATIENT COMMENT** MISC XX SCH (21:29)
[2020-12-18] MEDS: HEPARIN SOD (PORCINE) 5000UNITS/ML 1ML VIAL/SYRINGE SC SCH ×3 (05:22→21:00)
[2020-12-18 06:00] VITALS: BP 159/72
[2020-12-18 06:39] LABS: BASO # 0.1 10^3/uL (0.0-0.2); BASO % 1.4 % (0.0-1.0); EOS # 0.1 10^3/uL (0.0-0.5); EOS % 1.2 % (0.0-3.0); HEMATOCRIT 33.4 % (36.0-47.0); HEMOGLOBIN 10.7 g/dl (12.0-15.5); LYMPH # 1.4 10^3/uL (1.5-5.0); MEAN CORPUSCULAR HEMOGLOBIN 30.9 pg (27.0-33.0); MEAN CORPUSCULAR VOLUME 96.5 fl (80.0-96.0); MONO # 0.5 10^3/uL (0.0-0.8); MONO % 6.5 % (2.0-8.0); NEUTROPHILS # 5.5 10^3/uL (1.5-8.5); NEUTROPHILS % 72.5 % (36.0-66.0); PLATELET COUNT, AUTOMATED 324 10^3/uL (150-450); RED BLOOD COUNT 3.46 10^6/uL (4.00-5.40); WHITE BLOOD COUNT 7.7 10^3/uL (4.0-10.0)
[2020-12-18 07:01] LABS: BLOOD UREA NITROGEN 11 MG/DL (7-18); CALCIUM LEVEL 8.2 MG/DL (8.8-10.2); CARBON DIOXIDE LEVEL 42 MEQ/L (21-32); CHLORIDE LEVEL 92 MEQ/L (98-107); CREATININE FOR GFR 0.34 MG/DL (0.55-1.30); GLOMERULAR FILTRATION RATE > 60.0 (>39); GLUCOSE, FASTING 78 MG/DL (70-100); MAGNESIUM LEVEL 2.1 MG/DL (1.8-2.4); POTASSIUM SERUM 4.5 MEQ/L (3.5-5.1); SODIUM LEVEL 132 MEQ/L (136-145)
[2020-12-18] MEDS: LIDOCAINE 5% (LIDODERM) PATCH TOP SCH (08:48)
[2020-12-18] MEDS: ASPIRIN 81 MG CHEW TABLET PO SCH (08:49)
[2020-12-18] MEDS: DOCUSATE SODIUM 100MG CAPSULE PO SCH ×2 (08:49→19:41)
[2020-12-18] MEDS: ACETAMINOPHEN TAB 650MG DOSE (2X325MG) PO PRN (08:49)
[2020-12-18] MEDS: busPIRone 10 MG TAB PO SCH ×2 (08:49→19:41)
[2020-12-18] MEDS: METOPROLOL SUCC (TopROL XL) 50MG **XL** TAB PO SCH ×2 (08:50→19:41)
[2020-12-18] MEDS: NIFEdipine 30 MG XL TAB PO SCH ×2 (08:50→19:42)
[2020-12-18] MEDS: IPRATROPIUM 0.5MG/ALBUTEROL 2.5MG INH SOL UD 3ML (DUONEB) INH PRN (08:59)
[2020-12-18] MEDS: **NOTE PATIENT COMMENT** MISC XX SCH (19:42)
[2020-12-19] MEDS: HEPARIN SOD (PORCINE) 5000UNITS/ML 1ML VIAL/SYRINGE SC SCH ×3 (05:08→21:18)
[2020-12-19 06:00] VITALS: BP 155/70
[2020-12-19] MEDS: METOPROLOL SUCC (TopROL XL) 50MG **XL** TAB PO SCH ×2 (08:44→21:19)
[2020-12-19] MEDS: DOCUSATE SODIUM 100MG CAPSULE PO SCH ×2 (08:44→21:17)
[2020-12-19] MEDS: ASPIRIN 81 MG CHEW TABLET PO SCH (08:44)
[2020-12-19] MEDS: busPIRone 10 MG TAB PO SCH ×2 (08:44→21:17)
[2020-12-19] MEDS: NIFEdipine 30 MG XL TAB PO SCH ×2 (08:45→21:19)
[2020-12-19] MEDS: LIDOCAINE 5% (LIDODERM) PATCH TOP SCH (08:45)
[2020-12-19] MEDS: IPRATROPIUM 0.5MG/ALBUTEROL 2.5MG INH SOL UD 3ML (DUONEB) INH PRN (12:32)
[2020-12-19] MEDS: **NOTE PATIENT COMMENT** MISC XX SCH (21:35)
[2020-12-20] MEDS: HEPARIN SOD (PORCINE) 5000UNITS/ML 1ML VIAL/SYRINGE SC SCH ×3 (05:59→22:20)
[2020-12-20 06:00] VITALS: BP 149/68
[2020-12-20] MEDS: NIFEdipine 30 MG XL TAB PO SCH ×2 (08:36→20:04)
[2020-12-20] MEDS: ASPIRIN 81 MG CHEW TABLET PO SCH (08:37)
[2020-12-20] MEDS: METOPROLOL SUCC (TopROL XL) 50MG **XL** TAB PO SCH ×2 (08:37→20:04)
[2020-12-20] MEDS: DOCUSATE SODIUM 100MG CAPSULE PO SCH ×2 (08:37→20:03)
[2020-12-20] MEDS: LIDOCAINE 5% (LIDODERM) PATCH TOP SCH (08:37)
[2020-12-20] MEDS: busPIRone 10 MG TAB PO SCH ×2 (08:37→20:03)
[2020-12-20] MEDS: IPRATROPIUM 0.5MG/ALBUTEROL 2.5MG INH SOL UD 3ML (DUONEB) INH PRN (15:43)
[2020-12-20] MEDS: **NOTE PATIENT COMMENT** MISC XX SCH (20:05)
[2020-12-21] MEDS: HEPARIN SOD (PORCINE) 5000UNITS/ML 1ML VIAL/SYRINGE SC SCH (05:30)
[2020-12-21 06:24] VITALS: BP 167/79
[2020-12-21] MEDS ORDERED: METO1TAB7 PO (07:59)
[2020-12-21] MEDS: busPIRone 10 MG TAB PO SCH (09:04)
[2020-12-21] MEDS: NIFEdipine 30 MG XL TAB PO SCH (09:04)
[2020-12-21] MEDS: ASPIRIN 81 MG CHEW TABLET PO SCH (09:04)
[2020-12-21 09:05] VITALS: BP 136/67
[2020-12-21] MEDS: METOPROLOL SUCC (TopROL XL) 50MG **XL** TAB PO SCH (09:05)
[2020-12-21] MEDS: DOCUSATE SODIUM 100MG CAPSULE PO SCH (09:05)
[2020-12-21] MEDS: LIDOCAINE 5% (LIDODERM) PATCH TOP SCH (09:05)
[2020-12-21] MEDS: ACETAMINOPHEN TAB 650MG DOSE (2X325MG) PO PRN (10:59)
[2021-01-03] MEDS ORDERED: METO1TAB87 (09:11)
[2021-01-03] MEDS ORDERED: ATOR40TA75 PO (09:11)
--- NOTE | 2021-01-13 19:10 | DS.PDOC ---
Discharge Summary General Date of Admission Dec 10, 2020 at 23:56 Date of Discharge 12/21/20 Discharge Summary PROCEDURES PERFORMED DURING STAY: [None]. SECONDARY DIAGNOSES: #CAD s/p stent #HTN #COPD #Chronic hypoxia (on 4L of oxygen via NC at home) #Depression COMPLICATIONS/CHIEF COMPLAINT: Lumbar Frature. HISTORY OF PRESENT ILLNESS: This is a 75-year-old female with a past medical history of coronary artery d isease status post stenting, hypertension, COPD on 4 L of oxygen at home, depression. Patient was admitted at [facility] between 12/02 and 12/03, after she sustained a fall at home, landing on her left hip. Patient complained of incontinence of stool and urine in the context of a severe L4 vertebral body compression fracture with retropulsion. For this reason, patient was transferred to [facility] for neurosurgery evaluation. Prior to transfer. Patient had positive blood cultures for staph hominis and staph epidermidis which did not regrow on repeat cultures from 12/03. Patient has suspected pneumonia and was in for transferred with IV Zosyn. Patient transferred back from [facility]. Reviewed hospital course. Patient was evaluated by orthospine service. Cartilage was also consulted for risk stratification. Cerebrovascular be high and recommended adding statin and resume aspirin if no surgical plan was in place. Pulmonology also noted. The patient recommended echo given history of gram-positive bacteremia that showed an EF of 41-49%. Unfortunately, I am unable to locate the echo report in the transfer packet. During the admission, patient also became unresponsive after dose of Ativan given for MRI and improved with reversal. Also concerning was the left upper lobe 2.1 cm density with irregular margins, as well as an irregular density in the inferior right middle lobe. Concern for malignant process. Patient was evaluated by thoracic surgery service at [facility] and recommended brain MRI, PET scan. Patient's family opted to return to [facility] and continue with outpatient surgical planning. Patient will need referral to oncology service for Pap CT and brain MRI. HOSPITAL COURSE: This is a 75-year-old female with a past medical history of coronary artery disease status post stenting, hypertension, COPD on 4 L of oxygen at home, depression. She was transferred to [facility] for evaluation of back pain secondary to an L4 burst fracture with retropulsion. Patient also received antibiotic therapy for community acquired pneumonia given gram-positive bacteremia prior to transfer. Subsequent blood cultures were negative. Patient currently completing course of doxycycline. Finally, patient was found to have suspicious chest x-ray findings for lung mass. Patient will require outpatient follow-up for brain MRI as well as a PET scan. Patient's family decided to transfer back to [facility] and to proceed with orthopedic surgery planning as outpatient. Detailed transfer packet available. #Back pain 2/2 burst fractures of L2 and L4 vertebral bodies - MRI imaging from [facility] reviewed, in physical chart. MRI also showing associated 4 mm osseous retropulsion alons superior aspect of L2 vertebral body and up to 5-6 mm osseous retropulsion at L4. - was evaluated by orthospine service. Recommendation for TSLO brace when out of bed. Surgical planning on outpatient basis. Patient and family wishes to return to [facility] for further PT needs. #Concern for primary pulmonary malignancy - reviewed CT chest from 12/02/20 (at [facility]) - 2.1 cm asymmetric density in L upper low - irregular density in inferior R middle lobe - needs MRI brain, PET-CT and referral to oncology #Hyponatremia - resolved #Pneumonia - patient had productive cough with SOB at [facility] prior to transfer - CXR from [facility] on 12/04 showing patchy opacitiesin R mid lower lung and peripheal L upper mid lung - 12/02 cultures positive for staph hominis (1/2) and magdiel epi (2/2) - was transfered with IV zosyn - completed course of antibiotics doxycycline #CAD s/p stent - occured > 10 years ago - Denies any chest pain, shortness of breath or palpitations - ASA and statin therapy #HTN - c/w Lisinopril, metoprolol and nifedipine #Chronic COPD - No evidence of exacerbation - c/w inhaled therapy as ordered #Chronic hypoxia - Patient is on 4L of oxygen via NC at home #Depression - c/w Buspirone #AAA - measured to 4.2 cm - outpatient f/u DISCHARGE MEDICATIONS: Please see below. ALLERGIES: Please see below. PHYSICAL EXAMINATION ON DISCHARGE: VITAL SIGNS: Please see below. General: NAD, comfortable HEENT: PERRLA, EOMI, sclerae clear Neck: supple, normal ROM, no JVD Respiratory: lungs CTAB, no wheeze, no rales, no crackles CVS: RRR, normal S1, S2, no murmurs Abdo: soft, no masses, no hepatosplenomegaly, BS+, no rebound tenderness Extremities: no edema, pulses 2+ MSK: no joint deformities, normal ROM Neuro: no focal neuro deficits, moving all 4 extremities, CN2-12 intact. Strength 5/5 in all 4 extremities. No nystagmus. Psych: calm, cooperative, AAO x 3 LABORATORY DATA: Please see below. DISPOSITION: [facility]. DISCHARGE INSTRUCTIONS: 1. Follow up PCP in 3-5 days 2. Follow up oncology regarding lung mass for further workup 3. Follow up regarding aortic aneurysm. DISCHARGE CONDITION: [Stable]. TIME SPENT ON DISCHARGE: 35 minutes. Vital Signs/I&Os Vital Signs Date Time Temp Pulse Resp B/P (MAP) Pulse Ox O2 Delivery O2 Flow Rate FiO2 12/21/20 09:05 84 136/67 12/21/20 09:00 4.0 12/21/20 06:24 96.0 18 98 Nasal Cannula I&O- Last 24 Hours up to 6 AM 12/21/20 06:00 Intake Total 1590 ml Output Total 0 ml Balance 1590 ml Laboratory Data Labs 24H Laboratory Tests 2 12/20/20 17:58: Coronavirus (COVID-19)(PCR) NEGATIVE Discharge Medications Scheduled Aspirin (Aspirin) 81 Mg Tab.chew, 81 MG PO DAILY, (Reported) Atorvastatin Calcium (Atorvastatin Calcium) 40 Mg Tablet, 1 TAB PO DAILY, (Reported) Buspirone HCl (Buspirone HCl) 10 Mg Tablet, 10 MG PO BID, (Reported) Lidocaine (Lidocaine) 5% Adh..patch, 1 PATCH TOP DAILY, (Reported) APPLIES TO LOWER BACK Lisinopril (Lisinopril) 20 Mg Tablet, 20 MG PO DAILY, (Reported) HOLD IF SBP<120 Metoprolol Succinate (Metoprolol Succinate) 50 Mg Tab.er.24h, 50 MG PO BID Nifedipine (Nifedipine ER) 30 Mg Tablet.er, 30 MG PO BID, (Reported) HOLD FOR SBP<120 Scheduled PRN Acetaminophen (Tylenol) 325 Mg Tablet, 650 MG PO Q4H PRN for HEADACHE OR MILD PAIN, (Reported) Ipratropium/Albuterol Sulfate (Iprat-Albut 0.5-3(2.5) mg/3 ml) 3 Ml Ampul.neb, 3 ML INH Q4H PRN for SHORTNESS OF BREATH, (Reported) Miscellaneous Medications Metoprolol Tartrate (Metoprolol Tartrate) 25 Mg Tablet, (Reported) Allergies Coded Allergies: No Known Allergies (Unverified , 12/01/20) CELESTINE LANZA MD Dec 21, 2020 15:36
== END 2020-12-21 13:24 | DRG 551 ==
LOC: M MSPAV 23:56
PROVIDERS: ADMIT General Practice; ATTEND Internal Medicine
DX: S32.021A Stable burst fracture of second lumbar vertebra, initial encounter for closed fracture (principal); J18.9 Pneumonia, unspecified organism; E87.1 Hypo-osmolality and hyponatremia; S32.041A Stable burst fracture of fourth lumbar vertebra, initial encounter for closed fracture; I25.10 Atherosclerotic heart disease of native coronary artery without angina pectoris; Z95.2 Presence of prosthetic heart valve; I10 Essential (primary) hypertension; J44.9 Chronic obstructive pulmonary disease, unspecified; F32.9 Major depressive disorder, single episode, unspecified; Z79.899 Other long term (current) drug therapy; Z79.82 Long term (current) use of aspirin; I71.4 Abdominal aortic aneurysm, without rupture; R91.8 Other nonspecific abnormal finding of lung field; W18.30XA Fall on same level, unspecified, initial encounter; Y92.009 Unspecified place in unspecified non-institutional (private) residence as the place of occurrence of the external cause

== ENCOUNTER → 2020-12-25 | Outpatient (REF) ==
[~2020-12-25] MED LIST changes: +ACET-907 PO; +ASPI1CHW3 PO; +ATOR40TA75 PO; +DOXY-443 PO; +IPRA0.00 INH; +LIDO1PAD TOP; +METO1TAB7 PO; +METO1TAB87; +NIFE30TA50 PO; +OXYC-517 PO; +SODI1TAB6 PO
[2020-12-25 09:52] LABS: HEMATOCRIT 36.2 % (36.0-47.0); HEMOGLOBIN 11.8 g/dl (12.0-15.5); MEAN CORPUSCULAR HEMOGLOBIN 31.3 pg (27.0-33.0); MEAN CORPUSCULAR HGB CONC 32.6 g/dl (32.0-36.5); PLATELET COUNT, AUTOMATED 241 10^3/uL (150-450); RED BLOOD COUNT 3.77 10^6/uL (4.00-5.40); WHITE BLOOD COUNT 8.3 10^3/uL (4.0-10.0)
[2020-12-25 10:23] LABS: ALBUMIN 2.9 GM/DL (3.2-5.2); ALT/SGPT 17 U/L (12-78); BILIRUBIN,TOTAL 0.4 MG/DL (0.2-1.0); BLOOD UREA NITROGEN 15 MG/DL (7-18); CALCIUM LEVEL 8.6 MG/DL (8.8-10.2); CARBON DIOXIDE LEVEL 32 MEQ/L (21-32); CHLORIDE LEVEL 91 MEQ/L (98-107); CHOLESTEROL LEVEL 165 MG/DL (<200); CHOLESTEROL RISK RATIO 1.774 (<5); GLOMERULAR FILTRATION RATE > 60.0 (>39); GLUCOSE, FASTING 150 MG/DL (70-100); HDL CHOLESTEROL 93 MG/DL (>40); LDL CHOLESTEROL 58 MG/DL (<100); NON-HDL-C 72 MG/DL; NT-PRO BNP 2884 PG/ML (<125); POTASSIUM SERUM 4.2 MEQ/L (3.5-5.1); SODIUM LEVEL 132 MEQ/L (136-145); TOTAL PROTEIN 6.2 GM/DL (6.4-8.2); TRIGLYCERIDES LEVEL 71 MG/DL (<150)
[2020-12-25 10:48] LABS: TOTAL 25(OH) VITAMIN D 25.1 NG/ML (30.0-100.0)
[2020-12-25 13:39] LABS: HEMOGLOBIN A1c 5.5 %
== END ==
LOC: SKLAB4 07:13
PROVIDERS: ATTEND Internal Medicine
DX: E78.5 Hyperlipidemia, unspecified (principal); I25.10 Atherosclerotic heart disease of native coronary artery without angina pectoris; I10 Essential (primary) hypertension; M81.0 Age-related osteoporosis without current pathological fracture

== ENCOUNTER 2023-05-05 08:08 | Day surgery (SDC) | payer MEDICARE ==
[~2023-05-05] VITALS: Ht 154.9 cm; Wt 68.0 kg
[~2023-05-05 08:08] MED LIST changes: +ALEV1TAB PO; +ASPI-655 PO; -ASPI1CHW3 PO; +BUDE10.7 INH; +CEFUROXIME 1MG/0.1ML INTRACAMERAL INJ As Ordered ONE; +CITA20TA7 PO; +CYCLOPENTOLATE 1% OPHTH SOLN 2ML BTL OD SCH; +FAMO40TA3 PO; +LEVO1TAB40; -LEVO750T13; +LIDOCAINE 1% SDV 5ML VIAL As Ordered ONE; +LISI40TA4 PO; +METO1TAB32 PO; +MIDAZOLAM INJ 2MG/2ML VIAL As Ordered ONE; +NIFE-3 PO; +NIFE1TAB52 PO; -NIFE30TA50 PO; +OFLOXACIN 0.3 % (OCUFLOX) OPTH SOL 5ML OD SCH; +PHENYLEPHRINE 2.5% OPHTH SOL 2ML OD SCH; +PROPARACAINE 0.5% OPHTH SOL 15ML OD ONE; +TROPICAMIDE 1% OPHTH SOLN 15ML OD SCH; +VITA100093 PO; +VITA500C19 PO; +fentaNYL 100 MCG/2 ML INJECTION As Ordered ONE
[2023-05-05] MEDS ORDERED: BSS IRR 500ML/OMIDRIA 4ML IRR BAG (OR ONLY) As Ordered ONE (10:16)
[2023-05-05 10:50] VITALS: BP 169/80; TEMP 97.4; O2SAT 93
== END 2023-05-05 11:13 | disposition home or self-care (01) ==
LOC: M SDC 08:08
PROVIDERS: ATTEND Ophthalmology
DX: H25.11 Age-related nuclear cataract, right eye (principal); I10 Essential (primary) hypertension; E78.00 Pure hypercholesterolemia, unspecified; I25.2 Old myocardial infarction; J44.9 Chronic obstructive pulmonary disease, unspecified; Z95.5 Presence of coronary angioplasty implant and graft; Z79.899 Other long term (current) drug therapy; Z90.710 Acquired absence of both cervix and uterus; Z87.891 Personal history of nicotine dependence
CPT/HCPCS: 66984; J0697; J1097; J2250; J3010; V2632

== ENCOUNTER 2023-06-30 08:03 | Day surgery (SDC) | payer MEDICARE ==
[~2023-06-30] VITALS: Ht 154.9 cm; Wt 68.7 kg
[~2023-06-30 08:03] MED LIST changes: +BSS IRR 500ML/OMIDRIA 4ML IRR BAG (OR ONLY) As Ordered ONE; -CYCLOPENTOLATE 1% OPHTH SOLN 2ML BTL OD SCH; +CYCLOPENTOLATE 1% OPHTH SOLN 2ML BTL OS SCH; -OFLOXACIN 0.3 % (OCUFLOX) OPTH SOL 5ML OD SCH; +OFLOXACIN 0.3 % (OCUFLOX) OPTH SOL 5ML OS SCH; -PHENYLEPHRINE 2.5% OPHTH SOL 2ML OD SCH; +PHENYLEPHRINE 2.5% OPHTH SOL 2ML OS SCH; -PROPARACAINE 0.5% OPHTH SOL 15ML OD ONE; +PROPARACAINE 0.5% OPHTH SOL 15ML OS ONE; -TROPICAMIDE 1% OPHTH SOLN 15ML OD SCH; +TROPICAMIDE 1% OPHTH SOLN 15ML OS SCH
[2023-06-30] MEDS ORDERED: CARBACHOL 0.01% OPHTH SOLN 1.5ML VIAL As Ordered ONE (10:39)
[2023-06-30] MEDS ORDERED: TOBRADEX OPHTH OINT 3.5 GM As Ordered ONE (10:44)
[2023-06-30 11:20] VITALS: BP 142/68; TEMP 97.6; O2SAT 93
== END 2023-06-30 11:26 | disposition home or self-care (01) ==
LOC: M SDC 08:03
PROVIDERS: ATTEND Ophthalmology
DX: H25.12 Age-related nuclear cataract, left eye (principal); I10 Essential (primary) hypertension; I25.2 Old myocardial infarction; Z98.61 Coronary angioplasty status; E78.5 Hyperlipidemia, unspecified; F41.9 Anxiety disorder, unspecified; F32.A Depression, unspecified; J44.9 Chronic obstructive pulmonary disease, unspecified; Z79.899 Other long term (current) drug therapy
CPT/HCPCS: 66984; J0697; J1097; J2250; J3010; V2632

== ENCOUNTER → 2023-09-24 | Outpatient (CLI) | payer MEDICARE ==
[~2023-09-24] MED LIST changes: -BSS IRR 500ML/OMIDRIA 4ML IRR BAG (OR ONLY) As Ordered ONE; -CEFUROXIME 1MG/0.1ML INTRACAMERAL INJ As Ordered ONE; -CYCLOPENTOLATE 1% OPHTH SOLN 2ML BTL OS SCH; -LIDOCAINE 1% SDV 5ML VIAL As Ordered ONE; -MIDAZOLAM INJ 2MG/2ML VIAL As Ordered ONE; -OFLOXACIN 0.3 % (OCUFLOX) OPTH SOL 5ML OS SCH; -PHENYLEPHRINE 2.5% OPHTH SOL 2ML OS SCH; -PROPARACAINE 0.5% OPHTH SOL 15ML OS ONE; -TROPICAMIDE 1% OPHTH SOLN 15ML OS SCH; -fentaNYL 100 MCG/2 ML INJECTION As Ordered ONE
== END ==
LOC: M WHC 11:58
PROVIDERS: ATTEND Internal Medicine Critical Care Medicine
DX: R22.41 Localized swelling, mass and lump, right lower limb (principal)

== ENCOUNTER → 2023-10-15 | Outpatient (CLI) | payer MEDICARE ==
[~2023-10-15] VITALS: Ht 154.9 cm; Wt 74.2 kg
[~2023-10-15] MED LIST changes: +DOXY-323 PO; -DOXY-443 PO; +HYDR-3713 PO; +SENN-186 PO; +cbd gummies PO
[2023-10-15 10:17] VITALS: BP 143/73; O2SAT 92
== END ==
LOC: M PAL 09:50
PROVIDERS: ATTEND Nurse Practitioner Adult Health
DX: G89.29 Other chronic pain (principal); M54.6 Pain in thoracic spine; M25.512 Pain in left shoulder; R10.84 Generalized abdominal pain; R91.8 Other nonspecific abnormal finding of lung field; R53.81 Other malaise; J44.9 Chronic obstructive pulmonary disease, unspecified; R06.09 Other forms of dyspnea; K59.00 Constipation, unspecified; Z99.81 Dependence on supplemental oxygen; Z66 Do not resuscitate; Z51.5 Encounter for palliative care; Z79.1 Long term (current) use of non-steroidal anti-inflammatories (NSAID); Z79.899 Other long term (current) drug therapy; Z85.118 Personal history of other malignant neoplasm of bronchus and lung; Z87.440 Personal history of urinary (tract) infections; Z87.891 Personal history of nicotine dependence

== ENCOUNTER → 2023-10-23 | Outpatient (CLI) | payer MEDICARE ==
[2023-10-23 13:57] LABS: PLATELET COUNT, AUTOMATED 266 10^3/uL (150-450)
[2023-10-23 14:10] LABS: INR 1.01; PARTIAL THROMBOPLASTIN TIME 21.5 SECONDS (24.8-34.2)
== END ==
LOC: M LAB 12:08
PROVIDERS: ATTEND Internal Medicine Critical Care Medicine
DX: R91.8 Other nonspecific abnormal finding of lung field (principal); Z79.01 Long term (current) use of anticoagulants

== ENCOUNTER → 2023-11-12 | Outpatient (CLI) | payer MEDICARE ==
[~2023-11-12] MED LIST changes: +HOME MED LIST COMPLETE! XX SCH; +LIDOCAINE 1% MDV 20ML VIAL As Ordered ONE; +VENTAER INH
[2023-11-12 12:20] VITALS: TEMP 97.9
[2023-11-12 15:15] VITALS: BP 118/56; O2SAT 94
== END ==
LOC: M IRPRO 11:49
PROVIDERS: ATTEND Internal Medicine Critical Care Medicine
DX: R91.1 Solitary pulmonary nodule (principal); C34.12 Malignant neoplasm of upper lobe, left bronchus or lung

== ENCOUNTER → 2023-11-18 | Outpatient (CLI) | payer MEDICARE ==
[~2023-11-18] VITALS: Ht 154.9 cm; Wt 75.6 kg
[~2023-11-18] MED LIST changes: -HOME MED LIST COMPLETE! XX SCH; -LIDOCAINE 1% MDV 20ML VIAL As Ordered ONE
[2023-11-18 10:16] VITALS: BP 129/75; O2SAT 92
== END ==
LOC: M PAL 09:55
PROVIDERS: ATTEND Nurse Practitioner Adult Health
DX: G89.29 Other chronic pain (principal); C34.12 Malignant neoplasm of upper lobe, left bronchus or lung; J43.2 Centrilobular emphysema; J44.9 Chronic obstructive pulmonary disease, unspecified; K21.9 Gastro-esophageal reflux disease without esophagitis; M54.6 Pain in thoracic spine; R53.81 Other malaise; R06.09 Other forms of dyspnea; K59.00 Constipation, unspecified; Z99.81 Dependence on supplemental oxygen; Z66 Do not resuscitate; Z51.5 Encounter for palliative care; Z79.1 Long term (current) use of non-steroidal anti-inflammatories (NSAID); Z79.891 Long term (current) use of opiate analgesic; Z79.899 Other long term (current) drug therapy; Z87.440 Personal history of urinary (tract) infections; Z87.891 Personal history of nicotine dependence

== ENCOUNTER → 2023-12-30 | Outpatient (CLI) | payer MEDICARE ==
[~2023-12-30] VITALS: Ht 154.9 cm; Wt 76.7 kg
[~2023-12-30] MED LIST changes: +MORP1SOL4 PO; +MUCI1TAB16 PO; +PIPE3.3729 IV; +POTA-298 PO; +XANA0.5T PO; -ZOSY1SOL5 IV
[2023-12-30 10:58] VITALS: BP 146/74; O2SAT 95
== END ==
LOC: M PAL 09:54
PROVIDERS: ATTEND Nurse Practitioner Adult Health
DX: G89.29 Other chronic pain (principal); C34.12 Malignant neoplasm of upper lobe, left bronchus or lung; J43.2 Centrilobular emphysema; J44.9 Chronic obstructive pulmonary disease, unspecified; K21.9 Gastro-esophageal reflux disease without esophagitis; R07.89 Other chest pain; R53.81 Other malaise; R06.09 Other forms of dyspnea; K59.00 Constipation, unspecified; Z99.81 Dependence on supplemental oxygen; Z66 Do not resuscitate; Z51.5 Encounter for palliative care; Z79.1 Long term (current) use of non-steroidal anti-inflammatories (NSAID); Z79.899 Other long term (current) drug therapy; Z79.891 Long term (current) use of opiate analgesic; Z87.440 Personal history of urinary (tract) infections; Z87.891 Personal history of nicotine dependence; Z90.710 Acquired absence of both cervix and uterus; Z95.5 Presence of coronary angioplasty implant and graft

== ENCOUNTER → 2024-02-03 | Outpatient (CLI) | payer MEDICARE ==
[~2024-02-03] VITALS: Ht 154.9 cm; Wt 75.3 kg
[2024-02-03 11:36] VITALS: BP 119/62; O2SAT 93
== END ==
LOC: M PAL 10:52
PROVIDERS: ATTEND Nurse Practitioner Adult Health
DX: G89.29 Other chronic pain (principal); C34.12 Malignant neoplasm of upper lobe, left bronchus or lung; J43.2 Centrilobular emphysema; J44.9 Chronic obstructive pulmonary disease, unspecified; K21.9 Gastro-esophageal reflux disease without esophagitis; R07.89 Other chest pain; R53.81 Other malaise; R06.09 Other forms of dyspnea; K59.00 Constipation, unspecified; Z99.81 Dependence on supplemental oxygen; Z66 Do not resuscitate; Z51.5 Encounter for palliative care; Z79.1 Long term (current) use of non-steroidal anti-inflammatories (NSAID); Z79.899 Other long term (current) drug therapy; Z79.891 Long term (current) use of opiate analgesic; Z87.440 Personal history of urinary (tract) infections; Z87.891 Personal history of nicotine dependence; Z90.710 Acquired absence of both cervix and uterus; Z95.5 Presence of coronary angioplasty implant and graft